=== PATIENT | male | born 1940 | race Caucasian/White ===

== ENCOUNTER → 2017-11-24 | Outpatient (CLI) | payer MEDICARE ==
[~2017-11-24] MED LIST: ACET325 PO; ALBU90OI6 INH; ALBU90OI61 INH; ASCO500 PO; ATOR10; ATOR40TA PO; Aspir 8181 MG PO; Augmentin 875-1 EACH PO; CARV6.25 PO; CEPH500 PO; FINA5 PO; FISH OIL 1,0001 EAC2 PO; FISH OIL CONC1000 MG PO; Flomax0.4 MG PO; HYDCHL12.5 PO; HYDR1TAB94 PO; LEVO750 PO; LISI20 PO; MELO7.5 PO; MULVITMINF; Macrobid 100 M100 MG PO; Norvasc2.5 MG PO; OMEPRAZOLE MAGN20 MG PO; ONDA4ODT SL; OSTEO BI-FLEX1 EAC2 PO; OXYACE5T PO; POTCHL20ER PO; TAMS.4ER PO; VITAMIN D34000 UNIT PO; VITAMIN PO; ZESTORETIC 20-121 EA PO
== END | disposition home or self-care (01) ==
LOC: LAB SRC 15:37
DX: N39.43 Post-void dribbling (principal); R31.9 Hematuria, unspecified
CPT/HCPCS: 87077; 87086; 87186

== ENCOUNTER → 2017-12-21 | Outpatient (CLI) | payer MEDICARE ==
[2017-12-21 09:40] LABS: Source, Urine Clean Catch
[2017-12-21 13:20] LABS: Bilirubin, Urine Neg (Neg); Blood, Urine 1+ (Neg); Glucose Qualitative, Urine Neg (Neg); Ketones, Urine Neg (Neg); Leukocyte Esterase, Urine Neg (Neg); Nitrite, Urine Neg (Neg); Protein, Urine Neg (Neg); Urobilinogen, Urine NORM (Normal)
[2017-12-21 13:55] LABS: Appearance, Urine Clear (Clear); Color, Urine Yellow (P-Yellow)
[2017-12-21 13:57] LABS: Red Blood Cells, Urine 0-2 /hpf (0-2)
[2017-12-21 13:58] LABS: Bacteria Few /hpf; Squamous Epithelial Cells Rare /hpf (Few)
== END ==
LOC: LAB SHORT 09:00 → LAB SRC 09:00 → LAB FUT 11-26 08:15 → EDSTATUS 11-26 08:15
PROVIDERS: Registered Nurse
DX: N30.01 Acute cystitis with hematuria (principal)
CPT/HCPCS: 81001; 87086

== ENCOUNTER 2018-02-06 15:00 | Emergency (ER) | payer MEDICARE ==
[~2018-02-06] VITALS: Ht 177.8 cm; Wt 140.6 kg
[~2018-02-06 15:00] MED LIST changes: -ACET325 PO; -ALBU90OI6 INH; -ALBU90OI61 INH; -ASCO500 PO; -Aspir 8181 MG PO; -Augmentin 875-1 EACH PO; -FINA5 PO; -FISH OIL 1,0001 EAC2 PO; -FISH OIL CONC1000 MG PO; -HYDR1TAB94 PO; -LEVO750 PO; +LISI20; -LISI20 PO; -Norvasc2.5 MG PO; +OMEP20ER; -OMEPRAZOLE MAGN20 MG PO; -ONDA4ODT SL; -OSTEO BI-FLEX1 EAC2 PO; -POTCHL20ER PO; -TAMS.4ER PO; -VITAMIN D34000 UNIT PO; -VITAMIN PO; -ZESTORETIC 20-121 EA PO
[2018-02-06 15:57] LABS: Source, Urine Clean Catch
[2018-02-06 15:58] LABS: BASOPHILS ABSOLUTE AUTO 0.03 K/mm3 (0.00-0.23); BASOPHILS PERCENT AUTO 0 % (0-2); EOSINOPHILS ABSOLUTE AUTO 0.01 K/mm3 (0.00-0.68); EOSINOPHILS PERCENT AUTO 0 % (0-6); Hematocrit 46.4 % (37.0-53.0); Hemoglobin 15.4 g/dL (13.5-17.5); IMMATURE GRAN ABSOLUTE AUTO 0.03 K/mm3 (0.00-0.10); IMMATURE GRAN PERCENT AUTO 0 % (0-1); LYMPHOCYTES ABSOLUTE AUTO 0.89 K/mm3 (0.84-5.20); LYMPHOCYTES PERCENT AUTO 8 % (21-46); MONOCYTES ABSOLUTE AUTO 0.59 K/mm3 (0.16-1.47); MONOCYTES PERCENT AUTO 5 % (4-13); Mean Corpuscular HGB 29.5 pg (26.0-34.0); Mean Corpuscular HGB Conc 33.2 g/dL (31.5-36.5); Mean Corpuscular Volume 89 fL (80-100); Mean Platelet Volume 9.5 fL (9.1-12.4); NEUTROPHILS ABSOLUTE AUTO 10.12 K/mm3 (1.96-9.15); NEUTROPHILS PERCENT AUTO 87 % (41-73); Platelet Count 205 K/mm3 (150-400); RDW Coefficient Variation 12.9 % (11.7-14.2); Red Blood Cell Count 5.22 M/mm3 (4.30-5.90); White Blood Cell Count 11.67 K/mm3 (4.00-11.30)
[2018-02-06 16:03] LABS: Appearance, Urine Clear (Clear); Bilirubin, Urine Neg (Neg); Blood, Urine 2+ (Neg); Color, Urine Yellow (P-Yellow); Glucose Qualitative, Urine Neg (Neg); Ketones, Urine Neg (Neg); Leukocyte Esterase, Urine Neg (Neg); Nitrite, Urine Neg (Neg); Protein, Urine Neg (Neg); Specific Gravity, Urine 1.015 (1.003-1.022); Urobilinogen, Urine NORM (Normal)
[2018-02-06 16:10] LABS: Red Blood Cells, Urine 0-2 /hpf (0-2)
[2018-02-06 16:11] LABS: Bacteria Rare /hpf; Squamous Epithelial Cells Not Seen /hpf (Few)
[2018-02-06 16:21] LABS: Alanine Aminotransfer (ALT/SGP 30 U/L (12-78); Albumin, Blood 3.6 g/dL (3.4-5.0); Albumin/Globulin Ratio 0.9 (0.8-1.8); Alk Phos 99 U/L (50-136); Anion Gap 10 mmol/L (6-16); Aspartate Aminotrans (AST/SGOT 22 U/L (12-37); Bilirubin, Total 0.7 mg/dL (0.1-1.0); Blood Urea Nitrogen 17 mg/dL (8-24); Bun/Creatinine Ratio 18.7 (12.0-20.0); CO2, Blood 26 mmol/L (21-32); Chloride, Blood 103 mmol/L (98-108); Creatinine, Blood 0.91 mg/dL (0.60-1.20); Globulin, Blood 4.2 g/dL (2.2-4.0); Glomerular Filtration Rate >60 (60-); Glucose, Blood 143 mg/dL (70-99); Potassium, Blood 3.2 mmol/L (3.5-5.5); Sodium, Blood 139 mmol/L (136-145); Total Protein, Blood 7.8 g/dL (6.4-8.2); Troponin I <0.015 ng/mL (0.000-0.040)
== END 2018-02-06 20:47 | disposition home or self-care (01) ==
LOC: ER 15:00
PROVIDERS: Emergency Medicine
DX: N40.1 Benign prostatic hyperplasia with lower urinary tract symptoms (principal); R33.8 Other retention of urine; N13.30 Unspecified hydronephrosis; E66.01 Morbid (severe) obesity due to excess calories; Z68.42 Body mass index [BMI] 45.0-49.9, adult; E78.00 Pure hypercholesterolemia, unspecified; Z79.899 Other long term (current) drug therapy
CPT/HCPCS: 36415; 51702; 74177; 80053; 81001; 83690; 84484; 85025; 93005; 93010; 99284; Q9967

== ENCOUNTER 2018-02-08 10:14 | Emergency (ER) | payer MEDICARE ==
[~2018-02-08] VITALS: Ht 177.8 cm; Wt 140.6 kg
== END 2018-02-08 14:07 | disposition home or self-care (01) ==
LOC: ER 10:14
DX: Z46.6 Encounter for fitting and adjustment of urinary device (principal); R33.9 Retention of urine, unspecified; E78.00 Pure hypercholesterolemia, unspecified; Z79.899 Other long term (current) drug therapy
CPT/HCPCS: 51702; 99282

== ENCOUNTER → 2018-02-11 | Outpatient (CLI) | payer MEDICARE | LOC: LAB SHORT 09:02 → LAB 09:02 | DX: R33.9 Retention of urine, unspecified (principal) | CPT/HCPCS: 87086 ==

== ENCOUNTER 2018-03-18 03:46 | Emergency (ER) | payer MEDICARE ==
[~2018-03-18] VITALS: Ht 177.8 cm; Wt 136.1 kg
[~2018-03-18 03:46] MED LIST changes: -LISI20; +LISI20 PO; -OMEP20ER; +OMEPRAZOLE MAGN20 MG PO
[2018-03-18] MEDS ORDERED: TAMS.4ER PO (04:38)
[2018-03-18 04:39] LABS: Source, Urine Catheter
[2018-03-18] MEDS ORDERED: Norvasc2.5 MG PO (04:39)
[2018-03-18] MEDS ORDERED: ZESTORETIC 20-121 EA PO (04:40)
[2018-03-18 04:41] LABS: Bilirubin, Urine Neg (Neg); Blood, Urine Neg (Neg); Glucose Qualitative, Urine Neg (Neg); Ketones, Urine Neg (Neg); Leukocyte Esterase, Urine 2+ (Neg); Nitrite, Urine Neg (Neg); Protein, Urine Neg (Neg); Urobilinogen, Urine NORM (Normal)
[2018-03-18] MEDS ORDERED: CHOL10002 PO (04:41)
[2018-03-18] MEDS ORDERED: FISH OIL 1,0001 EAC2 PO (04:41)
[2018-03-18] MEDS ORDERED: OSTEO BI-FLEX1 EAC2 PO (04:42)
[2018-03-18] MEDS ORDERED: Aspir 8181 MG PO (04:42)
[2018-03-18] MEDS ORDERED: ALBU90OI6 INH (04:43)
[2018-03-18 04:50] LABS: Appearance, Urine Clear (Clear); Color, Urine Yellow (P-Yellow)
[2018-03-18 04:51] LABS: Bacteria Rare /hpf; Red Blood Cells, Urine 0-2 /hpf (0-2); Squamous Epithelial Cells Not Seen /hpf (Few)
[2018-03-18] MEDS ORDERED: FINA5 PO (19:16)
== END 2018-03-18 04:45 | disposition home or self-care (01) ==
LOC: ER 03:46
PROVIDERS: Emergency Medicine
DX: R33.9 Retention of urine, unspecified (principal); Z79.899 Other long term (current) drug therapy; Z79.82 Long term (current) use of aspirin
CPT/HCPCS: 51702; 81001; 87077; 87086; 87186; 99283

== ENCOUNTER 2018-03-18 19:10 | Inpatient (IN) | payer MEDICARE ==
[~2018-03-18] VITALS: Ht 177.8 cm; Wt 141.9 kg
[~2018-03-18 19:10] MED LIST changes: +ALBU90OI6 INH; +Aspir 8181 MG PO; +CHOL10002 PO; +FISH OIL 1,0001 EAC2 PO; +Norvasc2.5 MG PO; +OSTEO BI-FLEX1 EAC2 PO; +TAMS.4ER PO; +ZESTORETIC 20-121 EA PO
[2018-03-18] MEDS ORDERED: FINA5 PO (19:16)
[2018-03-18 19:49] LABS: Source, Urine Catheter
[2018-03-18 19:51] LABS: BASOPHILS ABSOLUTE AUTO 0.03 K/mm3 (0.00-0.23); BASOPHILS PERCENT AUTO 0 % (0-2); EOSINOPHILS ABSOLUTE AUTO 0.08 K/mm3 (0.00-0.68); EOSINOPHILS PERCENT AUTO 1 % (0-6); Hematocrit 43.3 % (37.0-53.0); Hemoglobin 14.5 g/dL (13.5-17.5); IMMATURE GRAN ABSOLUTE AUTO 0.07 K/mm3 (0.00-0.10); IMMATURE GRAN PERCENT AUTO 0 % (0-1); LYMPHOCYTES ABSOLUTE AUTO 0.76 K/mm3 (0.84-5.20); LYMPHOCYTES PERCENT AUTO 5 % (21-46); MONOCYTES ABSOLUTE AUTO 1.13 K/mm3 (0.16-1.47); MONOCYTES PERCENT AUTO 7 % (4-13); Mean Corpuscular HGB 29.7 pg (26.0-34.0); Mean Corpuscular HGB Conc 33.5 g/dL (31.5-36.5); Mean Corpuscular Volume 89 fL (80-100); Mean Platelet Volume 9.9 fL (9.1-12.4); NEUTROPHILS ABSOLUTE AUTO 14.98 K/mm3 (1.96-9.15); NEUTROPHILS PERCENT AUTO 88 % (41-73); Platelet Count 186 K/mm3 (150-400); Red Blood Cell Count 4.89 M/mm3 (4.30-5.90); White Blood Cell Count 17.05 K/mm3 (4.00-11.30)
[2018-03-18 20:00] LABS: Appearance, Urine Clear (Clear); Bilirubin, Urine Neg (Neg); Blood, Urine 4+ (Neg); Color, Urine Yellow (P-Yellow); Glucose Qualitative, Urine Neg (Neg); Ketones, Urine Neg (Neg); Leukocyte Esterase, Urine 3+ (Neg); Nitrite, Urine Neg (Neg); Protein, Urine 2+ (Neg); Urobilinogen, Urine NORM (Normal); pH, Urine 6.5 (5.0-8.0)
[2018-03-18 20:07] LABS: Anion Gap 9 mmol/L (6-16); Blood Urea Nitrogen 16 mg/dL (8-24); Bun/Creatinine Ratio 18.9 (12.0-20.0); CO2, Blood 25 mmol/L (21-32); Calcium, Blood 8.8 mg/dL (8.5-10.1); Chloride, Blood 104 mmol/L (98-108); Creatinine, Blood 0.85 mg/dL (0.60-1.20); Glomerular Filtration Rate >60 (60-); Glucose, Blood 124 mg/dL (70-99); Potassium, Blood 3.8 mmol/L (3.5-5.5); Sodium, Blood 138 mmol/L (136-145)
[2018-03-18 20:08] LABS: Bacteria Few /hpf; Red Blood Cells, Urine 25-50 /hpf (0-2); Squamous Epithelial Cells Few /hpf (Few); White Blood Cells, Urine 50-100 /hpf (0-5)
[2018-03-18 23:03] LABS: International Normalized Ratio 1.09; Prothrombin Time Results 11.4 Sec (9.7-11.5)
[2018-03-19 05:10] LABS: BASOPHILS ABSOLUTE AUTO 0.03 K/mm3 (0.00-0.23); BASOPHILS PERCENT AUTO 0 % (0-2); EOSINOPHILS ABSOLUTE AUTO 0.02 K/mm3 (0.00-0.68); EOSINOPHILS PERCENT AUTO 0 % (0-6); Hematocrit 38.4 % (37.0-53.0); Hemoglobin 12.9 g/dL (13.5-17.5); IMMATURE GRAN ABSOLUTE AUTO 0.09 K/mm3 (0.00-0.10); IMMATURE GRAN PERCENT AUTO 1 % (0-1); LYMPHOCYTES ABSOLUTE AUTO 0.92 K/mm3 (0.84-5.20); LYMPHOCYTES PERCENT AUTO 5 % (21-46); MONOCYTES ABSOLUTE AUTO 1.17 K/mm3 (0.16-1.47); MONOCYTES PERCENT AUTO 7 % (4-13); Mean Corpuscular HGB 29.3 pg (26.0-34.0); Mean Corpuscular HGB Conc 33.6 g/dL (31.5-36.5); Mean Corpuscular Volume 87 fL (80-100); Mean Platelet Volume 10.1 fL (9.1-12.4); NEUTROPHILS PERCENT AUTO 87 % (41-73); Platelet Count 183 K/mm3 (150-400); RDW Standard Deviation 41.3 fL (35.1-46.3); White Blood Cell Count 17.23 K/mm3 (4.00-11.30)
[2018-03-19 05:33] LABS: Anion Gap 8 mmol/L (6-16); Blood Urea Nitrogen 11 mg/dL (8-24); Bun/Creatinine Ratio 14.1 (12.0-20.0); CO2, Blood 26 mmol/L (21-32); Chloride, Blood 106 mmol/L (98-108); Creatinine, Blood 0.78 mg/dL (0.60-1.20); Glomerular Filtration Rate >60 (60-); Glucose, Blood 126 mg/dL (70-99); Sodium, Blood 140 mmol/L (136-145)
[2018-03-20 04:58] LABS: BASOPHILS ABSOLUTE AUTO 0.03 K/mm3 (0.00-0.23); BASOPHILS PERCENT AUTO 0 % (0-2); EOSINOPHILS ABSOLUTE AUTO 0.14 K/mm3 (0.00-0.68); EOSINOPHILS PERCENT AUTO 1 % (0-6); Hematocrit 36.2 % (37.0-53.0); Hemoglobin 11.9 g/dL (13.5-17.5); IMMATURE GRAN ABSOLUTE AUTO 0.05 K/mm3 (0.00-0.10); IMMATURE GRAN PERCENT AUTO 0 % (0-1); LYMPHOCYTES ABSOLUTE AUTO 1.78 K/mm3 (0.84-5.20); LYMPHOCYTES PERCENT AUTO 14 % (21-46); MONOCYTES ABSOLUTE AUTO 1.03 K/mm3 (0.16-1.47); MONOCYTES PERCENT AUTO 8 % (4-13); Mean Corpuscular HGB 29.2 pg (26.0-34.0); Mean Corpuscular HGB Conc 32.9 g/dL (31.5-36.5); Mean Corpuscular Volume 89 fL (80-100); NEUTROPHILS ABSOLUTE AUTO 10.15 K/mm3 (1.96-9.15); NEUTROPHILS PERCENT AUTO 77 % (41-73); Platelet Count 150 K/mm3 (150-400); RDW Coefficient Variation 13.1 % (11.7-14.2); RDW Standard Deviation 42.7 fL (35.1-46.3); Red Blood Cell Count 4.07 M/mm3 (4.30-5.90); White Blood Cell Count 13.18 K/mm3 (4.00-11.30)
[2018-03-20 05:21] LABS: Anion Gap 7 mmol/L (6-16); Blood Urea Nitrogen 15 mg/dL (8-24); Bun/Creatinine Ratio 17.2 (12.0-20.0); CO2, Blood 27 mmol/L (21-32); Calcium, Blood 8.2 mg/dL (8.5-10.1); Chloride, Blood 107 mmol/L (98-108); Creatinine, Blood 0.87 mg/dL (0.60-1.20); Glomerular Filtration Rate >60 (60-); Glucose, Blood 96 mg/dL (70-99); Sodium, Blood 141 mmol/L (136-145)
[2018-03-21 08:39] LABS: BASOPHILS ABSOLUTE AUTO 0.04 K/mm3 (0.00-0.23); BASOPHILS PERCENT AUTO 1 % (0-2); EOSINOPHILS ABSOLUTE AUTO 0.21 K/mm3 (0.00-0.68); EOSINOPHILS PERCENT AUTO 3 % (0-6); Hematocrit 39.2 % (37.0-53.0); Hemoglobin 13.1 g/dL (13.5-17.5); IMMATURE GRAN ABSOLUTE AUTO 0.04 K/mm3 (0.00-0.10); IMMATURE GRAN PERCENT AUTO 1 % (0-1); LYMPHOCYTES ABSOLUTE AUTO 1.35 K/mm3 (0.84-5.20); LYMPHOCYTES PERCENT AUTO 16 % (21-46); MONOCYTES PERCENT AUTO 7 % (4-13); Mean Corpuscular HGB 29.5 pg (26.0-34.0); Mean Corpuscular HGB Conc 33.4 g/dL (31.5-36.5); Mean Corpuscular Volume 88 fL (80-100); NEUTROPHILS PERCENT AUTO 73 % (41-73); Platelet Count 186 K/mm3 (150-400); RDW Coefficient Variation 12.9 % (11.7-14.2); RDW Standard Deviation 41.8 fL (35.1-46.3); Red Blood Cell Count 4.44 M/mm3 (4.30-5.90); White Blood Cell Count 8.34 K/mm3 (4.00-11.30)
[2018-03-21 09:01] LABS: Anion Gap 8 mmol/L (6-16); Blood Urea Nitrogen 11 mg/dL (8-24); Bun/Creatinine Ratio 13.2 (12.0-20.0); CO2, Blood 25 mmol/L (21-32); Calcium, Blood 8.6 mg/dL (8.5-10.1); Chloride, Blood 108 mmol/L (98-108); Creatinine, Blood 0.83 mg/dL (0.60-1.20); Glomerular Filtration Rate >60 (60-); Glucose, Blood 109 mg/dL (70-99); Magnesium, Blood 2.1 mg/dL (1.6-2.4); Potassium, Blood 3.3 mmol/L (3.5-5.5); Sodium, Blood 141 mmol/L (136-145)
[2018-03-21] MEDS ORDERED: ASCO500 PO (11:05)
[2018-03-21] MEDS ORDERED: ACET325 PO (11:05)
[2018-03-21] MEDS ORDERED: ONDA4ODT SL (11:07)
[2018-03-21] MEDS ORDERED: POTCHL20ER PO (11:08)
[2018-03-21] MEDS ORDERED: LEVO750 PO (11:09)
== END 2018-03-21 13:05 | disposition home or self-care (01) | DRG 698 ==
LOC: ER 19:10 → MEDS 19:11 → ER 22:37 → MEDS 22:37 → EDPENDDISTM 03-21 11:05 → ENPENDDIS 03-21 11:08 → MEDS 03-21 13:05
PROVIDERS: Emergency Medicine; Family Medicine; Hospitalist; Internal Medicine
DX: T83.511A Infection and inflammatory reaction due to indwelling urethral catheter, initial encounter (principal); A41.9 Sepsis, unspecified organism; Z68.41 Body mass index [BMI] 40.0-44.9, adult; N39.0 Urinary tract infection, site not specified; I10 Essential (primary) hypertension; E78.5 Hyperlipidemia, unspecified; G47.33 Obstructive sleep apnea (adult) (pediatric); N40.0 Benign prostatic hyperplasia without lower urinary tract symptoms; K21.9 Gastro-esophageal reflux disease without esophagitis; M19.90 Unspecified osteoarthritis, unspecified site; I25.10 Atherosclerotic heart disease of native coronary artery without angina pectoris; E66.9 Obesity, unspecified; Z79.1 Long term (current) use of non-steroidal anti-inflammatories (NSAID); Z79.82 Long term (current) use of aspirin; Z79.899 Other long term (current) drug therapy
CPT/HCPCS: 36415; 71045; 80048; 81001; 83605; 83735; 84145; 85025; 85610; 85730; 87086; 94762; 96374; 99285; J0692; J0696; J1650; J7030

== ENCOUNTER 2018-03-28 10:14 | Emergency (ER) | payer MEDICARE ==
[~2018-03-28] VITALS: Ht 177.8 cm; Wt 136.1 kg
[~2018-03-28 10:14] MED LIST changes: +ACET325 PO; +ASCO500 PO; +FINA5 PO; +LEVO750 PO; +ONDA4ODT SL; +POTCHL20ER PO
== END 2018-03-28 11:25 | disposition home or self-care (01) ==
LOC: ER 10:14
DX: T83.031A Leakage of indwelling urethral catheter, initial encounter (principal); E78.00 Pure hypercholesterolemia, unspecified; Z79.899 Other long term (current) drug therapy; Z79.82 Long term (current) use of aspirin
CPT/HCPCS: 99282

== ENCOUNTER 2018-09-15 07:38 | Day surgery (SDC) | payer MEDICARE ==
[~2018-09-15] VITALS: Ht 177.8 cm; Wt 137.2 kg
[~2018-09-15 07:38] MED LIST changes: +ALBU90OI61 INH
== END 2018-09-15 09:40 | disposition home or self-care (01) ==
LOC: ORSCSDS 07:38
PROVIDERS: Internal Medicine Gastroenterology
PROC: 0DBP8ZX Excision of Rectum, Via Natural or Artificial Opening Endoscopic, Diagnostic (ICD-10-PCS; principal; 2018-09-15 09:00)
PROC: 0DBK8ZX Excision of Ascending Colon, Via Natural or Artificial Opening Endoscopic, Diagnostic (ICD-10-PCS; principal; 2018-09-15 09:00)
DX: Z12.11 Encounter for screening for malignant neoplasm of colon (principal); K62.1 Rectal polyp; D12.2 Benign neoplasm of ascending colon; Z86.010 Personal history of colon polyps; K57.30 Diverticulosis of large intestine without perforation or abscess without bleeding; K64.8 Other hemorrhoids; I10 Essential (primary) hypertension; K21.0 Gastro-esophageal reflux disease with esophagitis; G47.33 Obstructive sleep apnea (adult) (pediatric); E66.01 Morbid (severe) obesity due to excess calories; Z68.41 Body mass index [BMI] 40.0-44.9, adult; Z79.82 Long term (current) use of aspirin; Z79.899 Other long term (current) drug therapy
CPT/HCPCS: 88305; J2405; J7120

== ENCOUNTER → 2018-12-22 | Outpatient (CLI) | payer MEDICARE ==
[~2018-12-22] MED LIST changes: +Augmentin 875-1 EACH PO; -CHOL10002 PO; +FISH OIL CONC1000 MG PO; +HYDR1TAB94 PO; +VITAMIN D34000 UNIT PO; +VITAMIN PO
== END | disposition home or self-care (01) ==
LOC: LAB SRC 08:00 → LAB SHORT 08:00
DX: R31.9 Hematuria, unspecified (principal); R82.90 Unspecified abnormal findings in urine
CPT/HCPCS: 87077; 87086; 87186

== ENCOUNTER → 2019-01-07 | Outpatient (CLI) | payer MEDICARE ==
[2019-01-07 13:28] LABS: Bilirubin, Urine Neg (Neg); Blood, Urine 1+ (Neg); Glucose Qualitative, Urine Neg (Neg); Ketones, Urine Neg (Neg); Leukocyte Esterase, Urine Neg (Neg); Nitrite, Urine Neg (Neg); Protein, Urine Neg (Neg); Urobilinogen, Urine NORM (Normal)
[2019-01-07 14:38] LABS: Appearance, Urine Clear (Clear); Color, Urine Yellow (P-Yellow)
[2019-01-07 14:39] LABS: Bacteria Few /hpf; Squamous Epithelial Cells Not Seen /hpf (Few)
== END | disposition home or self-care (01) ==
LOC: LAB SHORT 08:45 → LAB SRC 08:45
PROVIDERS: Registered Nurse
DX: R31.9 Hematuria, unspecified (principal); R82.90 Unspecified abnormal findings in urine
CPT/HCPCS: 81001

== ENCOUNTER → 2019-12-15 | Outpatient (CLI) | payer MEDICARE | LOC: PLD 07:42 → LAB SHORT 07:42 | DX: D48.5 Neoplasm of uncertain behavior of skin (principal) | CPT/HCPCS: 88304 ==

== ENCOUNTER → 2020-11-21 | Outpatient (CLI) | payer MEDICARE | END | disposition home or self-care (01) | LOC: LAB 13:00 → LAB SHORT 13:00 | DX: R32 Unspecified urinary incontinence (principal) | CPT/HCPCS: 87086 ==

== ENCOUNTER → 2021-01-25 | Outpatient (CLI) | payer MEDICARE ==
[2021-01-25 11:20] LABS: Source, Urine Clean Catch
[2021-01-25 14:16] LABS: Appearance, Urine Hazy (Clear); Bilirubin, Urine Neg (Neg); Blood, Urine 4+ (Neg); Color, Urine Yellow (P-Yellow); Glucose Qualitative, Urine Neg (Neg); Ketones, Urine Neg (Neg); Leukocyte Esterase, Urine 3+ (Neg); Nitrite, Urine Neg (Neg); Protein, Urine 3+ (Neg); Urobilinogen, Urine NORM (Normal); pH, Urine 6.5 (5.0-8.0)
[2021-01-25 14:45] LABS: Bacteria Mod /hpf; Red Blood Cells, Urine TNTC /hpf (0-2); Renal Epithelial Few /hpf (0-Rare); Squamous Epithelial Cells Rare /hpf (Few); White Blood Cells, Urine TNTC /hpf (0-5)
== END | disposition home or self-care (01) ==
LOC: LAB SHORT 11:19 → LAB SRC 11:19
PROVIDERS: Nurse Practitioner Family
DX: R30.0 Dysuria (principal); R33.9 Retention of urine, unspecified
CPT/HCPCS: 81001; 87077; 87086; 87186

== ENCOUNTER → 2021-03-27 | Outpatient (CLI) | payer MEDICARE | LOC: LAB SHORT 11:07 → LAB 11:07 | DX: D48.5 Neoplasm of uncertain behavior of skin (principal); D36.10 Benign neoplasm of peripheral nerves and autonomic nervous system, unspecified | CPT/HCPCS: 88305 ==

== ENCOUNTER → 2021-06-25 | Outpatient (CLI) | payer MEDICARE ==
[2021-06-28 14:14] LABS: Stool Occult Bld Immuno 1 Negative (NEGATIVE)
== END | disposition home or self-care (01) ==
LOC: LAB 07:25 → LAB SHORT 07:25
PROVIDERS: Registered Nurse
DX: Z12.11 Encounter for screening for malignant neoplasm of colon (principal)
CPT/HCPCS: G0328

== ENCOUNTER → 2021-06-27 | Outpatient (CLI) | payer MEDICARE | END | disposition home or self-care (01) | LOC: LAB 16:46 → LAB SHORT 16:46 | DX: N39.0 Urinary tract infection, site not specified (principal); R31.9 Hematuria, unspecified | CPT/HCPCS: 87077; 87086; 87186 ==

== ENCOUNTER → 2021-12-24 | Outpatient (CLI) | payer MEDICARE | END | disposition home or self-care (01) | LOC: LAB SHORT 10:40 | DX: R35.0 Frequency of micturition (principal) | CPT/HCPCS: 87086 ==

== ENCOUNTER → 2022-01-10 | Outpatient (CLI) | payer MEDICARE | LOC: LAB SHORT 17:51 | DX: R35.0 Frequency of micturition (principal) | CPT/HCPCS: 87086 ==

== ENCOUNTER 2022-01-17 08:46 | Emergency (ER) | payer MEDICARE ==
[~2022-01-17] VITALS: Ht 177.8 cm; Wt 145.2 kg
[2022-01-17 09:39] LABS: BASOPHILS ABSOLUTE AUTO 0.03 K/mm3 (0.00-0.23); BASOPHILS PERCENT AUTO 0 % (0-2); EOSINOPHILS ABSOLUTE AUTO 0.06 K/mm3 (0.00-0.68); EOSINOPHILS PERCENT AUTO 1 % (0-6); Hematocrit 43.8 % (37.0-53.0); Hemoglobin 14.5 g/dL (13.5-17.5); IMMATURE GRAN ABSOLUTE AUTO 0.05 K/mm3 (0.00-0.10); IMMATURE GRAN PERCENT AUTO 0 % (0-1); LYMPHOCYTES PERCENT AUTO 12 % (21-46); MONOCYTES ABSOLUTE AUTO 0.85 K/mm3 (0.16-1.47); MONOCYTES PERCENT AUTO 7 % (4-13); Mean Corpuscular HGB 29.1 pg (26.0-34.0); Mean Corpuscular HGB Conc 33.1 g/dL (31.5-36.5); Mean Corpuscular Volume 88 fL (80-100); Mean Platelet Volume 9.9 fL (9.1-12.4); NEUTROPHILS ABSOLUTE AUTO 9.15 K/mm3 (1.96-9.15); NEUTROPHILS PERCENT AUTO 79 % (41-73); Platelet Count 297 K/mm3 (150-400); RDW Coefficient Variation 12.7 % (11.7-14.2); RDW Standard Deviation 41.2 fL (35.1-46.3); Red Blood Cell Count 4.99 M/mm3 (4.30-5.90); White Blood Cell Count 11.54 K/mm3 (4.00-11.30)
[2022-01-17 09:49] LABS: Alanine Aminotransfer (ALT/SGP 20 U/L (12-78); Albumin, Blood 2.9 g/dL (3.4-5.0); Albumin/Globulin Ratio 0.6 (0.8-1.8); Alk Phos 73 U/L (50-136); Anion Gap 5 mmol/L (6-16); Aspartate Aminotrans (AST/SGOT 10 U/L (12-37); Bilirubin, Total 0.5 mg/dL (0.1-1.0); Blood Urea Nitrogen 18 mg/dL (8-24); Bun/Creatinine Ratio 24.2 (12.0-20.0); CO2, Blood 30 mmol/L (21-32); Calcium, Blood 9.3 mg/dL (8.5-10.1); Chloride, Blood 102 mmol/L (98-108); Creatinine, Blood 0.75 mg/dL (0.60-1.20); Globulin, Blood 4.9 g/dL (2.2-4.0); Glomerular Filtration Rate >60 (60-); Glucose, Blood 168 mg/dL (70-99); Magnesium, Blood 2.2 mg/dL (1.6-2.4); Potassium, Blood 3.5 mmol/L (3.5-5.5); Sodium, Blood 137 mmol/L (136-145); Total Protein, Blood 7.8 g/dL (6.4-8.2)
[2022-01-17 10:30] LABS: Free Thyroxine 1.53 ng/dL (0.70-1.60); Thyroid Stimulating Hormone 1.43 uIU/mL (0.360-4.800)
[2022-01-17] MEDS ORDERED: IBUP600 PO (14:41)
[2022-01-17] MEDS ORDERED: HYDR1TAB94 PO (14:41)
[2022-01-17] MEDS ORDERED: Prednisone10 MG PO (14:41)
== END 2022-01-17 15:16 | disposition home or self-care (01) ==
LOC: ER 08:46
PROVIDERS: Physician Assistant
DX: M17.0 Bilateral primary osteoarthritis of knee (principal); M25.462 Effusion, left knee; M25.461 Effusion, right knee; E78.5 Hyperlipidemia, unspecified; I10 Essential (primary) hypertension; K21.9 Gastro-esophageal reflux disease without esophagitis; Z79.899 Other long term (current) drug therapy
CPT/HCPCS: 36415; 73562-LT; 73562-RT; 80053; 83735; 84439; 84443; 85025; 85651; 86140; 93005; 93010; 93926; 96374; 96375; 99284-25; J1170; J1885; J2930

== ENCOUNTER 2022-01-29 08:41 | Emergency (ER) | payer MEDICARE ==
[~2022-01-29] VITALS: Ht 177.8 cm; Wt 145.2 kg
[~2022-01-29 08:41] MED LIST changes: +IBUP600 PO; +Prednisone10 MG PO
[2022-01-29 10:20] LABS: BASOPHILS ABSOLUTE AUTO 0.02 K/mm3 (0.00-0.23); BASOPHILS PERCENT AUTO 0 % (0-2); EOSINOPHILS ABSOLUTE AUTO 0.03 K/mm3 (0.00-0.68); EOSINOPHILS PERCENT AUTO 0 % (0-6); Hematocrit 43.5 % (37.0-53.0); Hemoglobin 14.2 g/dL (13.5-17.5); IMMATURE GRAN ABSOLUTE AUTO 0.07 K/mm3 (0.00-0.10); IMMATURE GRAN PERCENT AUTO 1 % (0-1); LYMPHOCYTES ABSOLUTE AUTO 1.21 K/mm3 (0.84-5.20); LYMPHOCYTES PERCENT AUTO 9 % (21-46); MONOCYTES ABSOLUTE AUTO 0.93 K/mm3 (0.16-1.47); MONOCYTES PERCENT AUTO 7 % (4-13); Mean Corpuscular HGB 29.1 pg (26.0-34.0); Mean Corpuscular HGB Conc 32.6 g/dL (31.5-36.5); Mean Corpuscular Volume 89 fL (80-100); Mean Platelet Volume 9.9 fL (9.1-12.4); NEUTROPHILS ABSOLUTE AUTO 11.96 K/mm3 (1.96-9.15); NEUTROPHILS PERCENT AUTO 84 % (41-73); Platelet Count 231 K/mm3 (150-400); RDW Coefficient Variation 13.1 % (11.7-14.2); RDW Standard Deviation 42.8 fL (35.1-46.3); Red Blood Cell Count 4.88 M/mm3 (4.30-5.90); White Blood Cell Count 14.22 K/mm3 (4.00-11.30)
[2022-01-29] MEDS ORDERED: METPRE4DP PO (11:31)
== END 2022-01-29 12:08 | disposition home or self-care (01) ==
LOC: ER 08:41
PROVIDERS: Family Medicine
DX: M19.90 Unspecified osteoarthritis, unspecified site (principal); I10 Essential (primary) hypertension; E78.5 Hyperlipidemia, unspecified; I25.10 Atherosclerotic heart disease of native coronary artery without angina pectoris; K21.9 Gastro-esophageal reflux disease without esophagitis; Z79.82 Long term (current) use of aspirin; Z79.899 Other long term (current) drug therapy
CPT/HCPCS: 36415; 85025; 85651; 86140; 96374; 99283-25; J1100

== ENCOUNTER → 2022-03-27 | Outpatient (CLI) | payer MEDICARE ==
[~2022-03-27] MED LIST changes: +METPRE4DP PO
== END | disposition home or self-care (01) ==
LOC: LAB 14:35 → LAB SHORT 14:35
DX: M35.3 Polymyalgia rheumatica (principal)
CPT/HCPCS: 85651

== ENCOUNTER 2022-06-22 00:51 | Emergency (ER) | payer MEDICARE ==
[~2022-06-22] VITALS: Ht 177.8 cm; Wt 145.2 kg
[2022-06-22 06:59] LABS: BASOPHILS ABSOLUTE AUTO 0.03 K/mm3 (0.00-0.23); BASOPHILS PERCENT AUTO 0 % (0-2); EOSINOPHILS ABSOLUTE AUTO 0.06 K/mm3 (0.00-0.68); EOSINOPHILS PERCENT AUTO 1 % (0-6); Hematocrit 45.4 % (37.0-53.0); Hemoglobin 14.7 g/dL (13.5-17.5); IMMATURE GRAN ABSOLUTE AUTO 0.06 K/mm3 (0.00-0.10); IMMATURE GRAN PERCENT AUTO 1 % (0-1); LYMPHOCYTES ABSOLUTE AUTO 1.33 K/mm3 (0.84-5.20); LYMPHOCYTES PERCENT AUTO 12 % (21-46); MONOCYTES ABSOLUTE AUTO 0.84 K/mm3 (0.16-1.47); MONOCYTES PERCENT AUTO 7 % (4-13); Mean Corpuscular HGB 30.1 pg (26.0-34.0); Mean Corpuscular HGB Conc 32.4 g/dL (31.5-36.5); Mean Corpuscular Volume 93 fL (80-100); Mean Platelet Volume 10.4 fL (9.1-12.4); NEUTROPHILS ABSOLUTE AUTO 9.07 K/mm3 (1.96-9.15); NEUTROPHILS PERCENT AUTO 80 % (41-73); Platelet Count 182 K/mm3 (150-400); RDW Coefficient Variation 13.2 % (11.7-14.2); RDW Standard Deviation 44.7 fL (35.1-46.3); Red Blood Cell Count 4.89 M/mm3 (4.30-5.90); White Blood Cell Count 11.39 K/mm3 (4.00-11.30)
[2022-06-22 07:05] LABS: Bun/Creatinine Ratio 22.7 (12.0-20.0); Calcium, Blood 9.1 mg/dL (8.5-10.1); Creatinine, Blood 0.75 mg/dL (0.60-1.20); Potassium, Blood 3.9 mmol/L (3.5-5.5)
[2022-06-22 07:20] LABS: Albumin, Blood 2.9 g/dL (3.4-5.0); Albumin/Globulin Ratio 0.8 (0.8-1.8); Bilirubin, Direct 0.2 mg/dL (0.0-0.3); Bilirubin, Indirect 0.3 mg/dL (0.1-0.7); Bilirubin, Total 0.5 mg/dL (0.1-1.0); Globulin, Blood 3.8 g/dL (2.2-4.0); Total Protein, Blood 6.7 g/dL (6.4-8.2)
[2022-06-22] MEDS ORDERED: XARELTO1 EAC1 PO (10:59)
== END 2022-06-22 11:24 | disposition home or self-care (01) ==
LOC: ER 00:51
PROVIDERS: Student in an Organized Health Care Education/Training Program
DX: R07.9 Chest pain, unspecified (principal); R06.00 Dyspnea, unspecified; R10.11 Right upper quadrant pain; K80.20 Calculus of gallbladder without cholecystitis without obstruction; I26.99 Other pulmonary embolism without acute cor pulmonale; E78.5 Hyperlipidemia, unspecified; I10 Essential (primary) hypertension; I25.10 Atherosclerotic heart disease of native coronary artery without angina pectoris; K21.9 Gastro-esophageal reflux disease without esophagitis; N40.0 Benign prostatic hyperplasia without lower urinary tract symptoms; Z79.82 Long term (current) use of aspirin; Z79.899 Other long term (current) drug therapy
CPT/HCPCS: 36415; 71260; 76705; 80048; 80076; 83690; 84484; 85025; 93005; 93010; A9270; Q9967

== ENCOUNTER 2023-02-11 22:17 | Emergency (ER) | payer MEDICARE ==
[~2023-02-11] VITALS: Ht 177.8 cm; Wt 145.2 kg
[~2023-02-11 22:17] MED LIST changes: +XARELTO1 EAC1 PO
[2023-02-12] MEDS ORDERED: Robaxin750 MG PO (00:50)
== END 2023-02-12 00:51 | disposition home or self-care (01) ==
LOC: ER 22:17
DX: M62.838 Other muscle spasm (principal); Z79.899 Other long term (current) drug therapy
CPT/HCPCS: 99284-25

== ENCOUNTER → 2023-12-02 | Outpatient (CLI) | payer MEDICARE ==
[~2023-12-02] MED LIST changes: +Bisoprolol Fumar5 MG; +MECL25 PO; +METF500; +ROPI.25; +Robaxin750 MG PO; +Ropinirole HCl1 MG
== END | disposition home or self-care (01) ==
LOC: LAB SHORT 17:35 → LAB 17:35
DX: E11.9 Type 2 diabetes mellitus without complications (principal)
CPT/HCPCS: 82043

== ENCOUNTER 2024-05-19 16:37 | Emergency (ER) | payer MEDICARE ==
[~2024-05-19] VITALS: Ht 177.8 cm; Wt 142.9 kg
[2024-05-19] MEDS ORDERED: Ondansetron HCl 2 MG / ML 2ML Vial IV ONE (16:55)
[2024-05-19 17:38] LABS: BASOPHILS ABSOLUTE AUTO 0.03 K/mm3 (0.00-0.23); BASOPHILS PERCENT AUTO 0 % (0-2); EOSINOPHILS ABSOLUTE AUTO 0.13 K/mm3 (0.00-0.68); EOSINOPHILS PERCENT AUTO 1 % (0-6); Hematocrit 44.6 % (37.0-53.0); Hemoglobin 14.7 g/dL (13.5-17.5); IMMATURE GRAN ABSOLUTE AUTO 0.01 K/mm3 (0.00-0.10); IMMATURE GRAN PERCENT AUTO 0 % (0-1); LYMPHOCYTES ABSOLUTE AUTO 1.34 K/mm3 (0.84-5.20); LYMPHOCYTES PERCENT AUTO 14 % (21-46); MONOCYTES ABSOLUTE AUTO 0.24 K/mm3 (0.16-1.47); MONOCYTES PERCENT AUTO 3 % (4-13); Mean Corpuscular HGB 30.2 pg (26.0-34.0); Mean Corpuscular Volume 92 fL (80-100); Mean Platelet Volume 9.7 fL (9.1-12.4); NEUTROPHILS ABSOLUTE AUTO 7.99 K/mm3 (1.96-9.15); NEUTROPHILS PERCENT AUTO 82 % (41-73); Platelet Count 191 K/mm3 (150-400); RDW Coefficient Variation 13.1 % (11.7-14.2); RDW Standard Deviation 43.9 fL (35.1-46.3); Red Blood Cell Count 4.86 M/mm3 (4.30-5.90); White Blood Cell Count 9.74 K/mm3 (4.00-11.30)
[2024-05-19 17:55] LABS: C-REACTIVE PROTEIN, EXT RANGE 0.791 mg/dL (0.000-0.300)
[2024-05-19 18:00] LABS: Albumin, Blood 3.6 g/dL (3.4-5.0); Albumin/Globulin Ratio 0.9 (0.8-1.8); Bilirubin, Total 0.4 mg/dL (0.1-1.0); Bun/Creatinine Ratio 20.7 (12.0-20.0); Calcium, Blood 9.1 mg/dL (8.5-10.1); Creatinine, Blood 0.77 mg/dL (0.60-1.20); Globulin, Blood 3.8 g/dL (2.2-4.0); Potassium, Blood 3.3 mmol/L (3.5-5.5); Total Protein, Blood 7.4 g/dL (6.4-8.2)
[2024-05-19 18:09] LABS: Influenza A, PCR NEGATIVE (NEGATIVE); Influenza B, PCR NEGATIVE (NEGATIVE); Resp Syncytial Virus, PCR NEGATIVE (NEGATIVE); SARS-Cov-2 (COVID-19) PCR, MMC NEGATIVE (NEGATIVE)
[2024-05-19] MEDS ORDERED: OxyCODONE 5 mg/Acetamin 325 mg TABLET PO ONE (21:45)
[2024-05-19] MEDS ORDERED: RX Prepack 6 Tabs Oxycodone 5mg UD ONE (22:10)
[2024-05-19] MEDS ORDERED: CEPH500 PO (22:12)
[2024-05-19] MEDS ORDERED: Mupirocin22 GM TOP (22:12)
[2024-05-19] MEDS ORDERED: CeFAZolin Sodium 1,000 MG in NS 50 ML IV ONE (22:15)
[2024-05-19 23:11] VITALS: BP 135/73
== END 2024-05-19 23:12 | disposition home or self-care (01) ==
LOC: ER 16:37
PROVIDERS: Physician Assistant
DX: L03.115 Cellulitis of right lower limb (principal); R11.0 Nausea; Z79.899 Other long term (current) drug therapy; Z79.84 Long term (current) use of oral hypoglycemic drugs
CPT/HCPCS: 0241U; 80053; 84145; 85025; 86140; 93971; A9270; J0690; J2405

== ENCOUNTER 2024-05-26 15:50 | Emergency (ER) | payer MEDICARE ==
[~2024-05-26] VITALS: Ht 177.8 cm; Wt 142.9 kg
[~2024-05-26 15:50] MED LIST changes: +Mupirocin22 GM TOP
[2024-05-26 16:07] VITALS: BP 119/74
[2024-05-26 16:29] LABS: BASOPHILS ABSOLUTE AUTO 0.04 K/mm3 (0.00-0.23); BASOPHILS PERCENT AUTO 0 % (0-2); EOSINOPHILS ABSOLUTE AUTO 0.09 K/mm3 (0.00-0.68); EOSINOPHILS PERCENT AUTO 1 % (0-6); Hematocrit 37.2 % (37.0-53.0); Hemoglobin 12.4 g/dL (13.5-17.5); IMMATURE GRAN PERCENT AUTO 3 % (0-1); LYMPHOCYTES ABSOLUTE AUTO 1.44 K/mm3 (0.84-5.20); LYMPHOCYTES PERCENT AUTO 16 % (21-46); MONOCYTES ABSOLUTE AUTO 0.72 K/mm3 (0.16-1.47); MONOCYTES PERCENT AUTO 8 % (4-13); Mean Corpuscular HGB 30.6 pg (26.0-34.0); Mean Corpuscular HGB Conc 33.3 g/dL (31.5-36.5); Mean Corpuscular Volume 92 fL (80-100); Mean Platelet Volume 9.9 fL (9.1-12.4); NEUTROPHILS ABSOLUTE AUTO 6.62 K/mm3 (1.96-9.15); NEUTROPHILS PERCENT AUTO 72 % (41-73); Platelet Count 296 K/mm3 (150-400); RDW Coefficient Variation 14.1 % (11.7-14.2); RDW Standard Deviation 47.8 fL (35.1-46.3); Red Blood Cell Count 4.05 M/mm3 (4.30-5.90); White Blood Cell Count 9.21 K/mm3 (4.00-11.30)
[2024-05-26 17:02] LABS: C-REACTIVE PROTEIN, EXT RANGE 16.6 mg/dL (0.000-0.300)
[2024-05-26 17:05] LABS: Albumin, Blood 2.3 g/dL (3.4-5.0); Albumin/Globulin Ratio 0.5 (0.8-1.8); Bilirubin, Total 0.6 mg/dL (0.1-1.0); Bun/Creatinine Ratio 17.7 (12.0-20.0); Calcium, Blood 8.6 mg/dL (8.5-10.1); Creatinine, Blood 0.79 mg/dL (0.60-1.20); Globulin, Blood 4.7 g/dL (2.2-4.0); Potassium, Blood 4.2 mmol/L (3.5-5.5)
[2024-05-26] MEDS ORDERED: Doxycycline Hyclate 100 MG TAB PO ONE (17:55)
[2024-05-26] MEDS ORDERED: Vibramycin100 MG PO (17:55)
[2024-05-26] MEDS ORDERED: Ultram50 MG PO (17:55)
== END 2024-05-26 18:09 | disposition home or self-care (01) ==
LOC: ER 15:50
PROVIDERS: Physician Assistant
DX: L03.116 Cellulitis of left lower limb (principal); E78.5 Hyperlipidemia, unspecified; I10 Essential (primary) hypertension; K21.9 Gastro-esophageal reflux disease without esophagitis; M19.90 Unspecified osteoarthritis, unspecified site; Z79.84 Long term (current) use of oral hypoglycemic drugs; Z79.899 Other long term (current) drug therapy
CPT/HCPCS: 80053; 85025; 86140; 99284; A9270

== ENCOUNTER 2024-06-06 08:48 | Emergency (ER) | payer MEDICARE ==
[~2024-06-06] VITALS: Ht 177.8 cm; Wt 140.6 kg
[~2024-06-06 08:48] MED LIST changes: +Ultram50 MG PO; +Vibramycin100 MG PO
[2024-06-06 10:02] LABS: BASOPHILS ABSOLUTE AUTO 0.05 K/mm3 (0.00-0.23); BASOPHILS PERCENT AUTO 1 % (0-2); EOSINOPHILS ABSOLUTE AUTO 0.07 K/mm3 (0.00-0.68); EOSINOPHILS PERCENT AUTO 1 % (0-6); Hematocrit 36.2 % (37.0-53.0); Hemoglobin 11.8 g/dL (13.5-17.5); IMMATURE GRAN ABSOLUTE AUTO 0.03 K/mm3 (0.00-0.10); IMMATURE GRAN PERCENT AUTO 0 % (0-1); LYMPHOCYTES ABSOLUTE AUTO 1.35 K/mm3 (0.84-5.20); LYMPHOCYTES PERCENT AUTO 17 % (21-46); MONOCYTES ABSOLUTE AUTO 0.69 K/mm3 (0.16-1.47); MONOCYTES PERCENT AUTO 9 % (4-13); Mean Corpuscular HGB 30.6 pg (26.0-34.0); Mean Corpuscular HGB Conc 32.6 g/dL (31.5-36.5); Mean Corpuscular Volume 94 fL (80-100); Mean Platelet Volume 9.6 fL (9.1-12.4); NEUTROPHILS ABSOLUTE AUTO 5.72 K/mm3 (1.96-9.15); NEUTROPHILS PERCENT AUTO 72 % (41-73); Platelet Count 346 K/mm3 (150-400); RDW Coefficient Variation 13.2 % (11.7-14.2); RDW Standard Deviation 45.6 fL (35.1-46.3); Red Blood Cell Count 3.86 M/mm3 (4.30-5.90); White Blood Cell Count 7.91 K/mm3 (4.00-11.30)
[2024-06-06 10:19] LABS: Albumin, Blood 2.5 g/dL (3.4-5.0); Albumin/Globulin Ratio 0.6 (0.8-1.8); Bilirubin, Total 0.3 mg/dL (0.1-1.0); Bun/Creatinine Ratio 16.9 (12.0-20.0); C-REACTIVE PROTEIN, EXT RANGE 3.62 mg/dL (0.000-0.300); Creatinine, Blood 0.89 mg/dL (0.60-1.20); Globulin, Blood 4.5 g/dL (2.2-4.0); Potassium, Blood 3.7 mmol/L (3.5-5.5)
[2024-06-06 11:30] VITALS: BP 130/75
[2024-06-06] MEDS ORDERED: Lasix20 MG PO (11:34)
[2024-06-06] MEDS ORDERED: Cleocin HCl300 MG PO (11:34)
[2024-06-06] MEDS ORDERED: Clindamycin HCl 150 MG Cap PO ONE (11:35)
[2024-06-06] MEDS ORDERED: Furosemide 10 MG / ML 2ML Vial IV ONE (11:35)
== END 2024-06-06 12:35 | disposition home or self-care (01) ==
LOC: ER 08:48
PROVIDERS: Emergency Medicine
DX: L03.115 Cellulitis of right lower limb (principal); E78.5 Hyperlipidemia, unspecified; I10 Essential (primary) hypertension; K21.9 Gastro-esophageal reflux disease without esophagitis; M19.90 Unspecified osteoarthritis, unspecified site; Z79.84 Long term (current) use of oral hypoglycemic drugs; Z79.2 Long term (current) use of antibiotics; Z79.899 Other long term (current) drug therapy
CPT/HCPCS: 73701; 80053; 83880; 85025; 86140; A9270; J1940; Q9967

== ENCOUNTER → 2024-06-24 | Outpatient (CLI) | payer MEDICARE ==
[~2024-06-24] MED LIST changes: -Bisoprolol Fumar5 MG; +Bisoprolol Fumar5 MG PO; +Cleocin HCl300 MG PO; +HYDCHL25 PO; +Lasix20 MG PO; -METF500; +METF500 PO; -ROPI.25; +ROPI.25 PO; +SULTRIDS PO; +TERB250 PO; +VISBIOME 112.51 EACH PO
[2024-06-24 16:24] LABS: Bun/Creatinine Ratio 17.5 (12.0-20.0); Calcium, Blood 8.8 mg/dL (8.5-10.1); Creatinine, Blood 0.86 mg/dL (0.60-1.20); Potassium, Blood 3.8 mmol/L (3.5-5.5)
== END ==
LOC: LAB 15:10 → LAB SHORT 15:10
PROVIDERS: Family Medicine
DX: L03.115 Cellulitis of right lower limb (principal)
CPT/HCPCS: 80048

== ENCOUNTER → 2024-07-04 | Outpatient (CLI) | payer MEDICARE ==
[~2024-07-04] MED LIST changes: +ALBU90OI INH; -ALBU90OI61 INH; +AMLODIPINE BESY10 MG PO; +LISINOPRIL-HCT1 EACH PO; +OMEP20ER PO; -OMEPRAZOLE MAGN20 MG PO; +OXYB5 PO
== END ==
LOC: LAB 11:17 → LAB SHORT 11:17
DX: B35.3 Tinea pedis (principal)
CPT/HCPCS: 87102; 87220

== ENCOUNTER 2024-08-08 01:11 | Inpatient (IN) | payer MEDICARE ==
[~2024-08-08] VITALS: Ht 177.8 cm; Wt 141.8 kg
[~2024-08-08 01:11] MED LIST changes: -AMLODIPINE BESY10 MG PO; -ASCO500 PO; -LISINOPRIL-HCT1 EACH PO; -OXYB5 PO
[2024-08-08] MEDS ORDERED: OXYB5 PO (01:21)
[2024-08-08 01:56] LABS: Albumin, Blood 3.1 g/dL (3.4-5.0); Albumin/Globulin Ratio 0.8 (0.8-1.8); BASOPHILS ABSOLUTE AUTO 0.04 K/mm3 (0.00-0.23); BASOPHILS PERCENT AUTO 1 % (0-2); Bilirubin, Total 0.5 mg/dL (0.1-1.0); Bun/Creatinine Ratio 23.5 (12.0-20.0); Creatinine, Blood 0.68 mg/dL (0.60-1.20); EOSINOPHILS ABSOLUTE AUTO 0.23 K/mm3 (0.00-0.68); EOSINOPHILS PERCENT AUTO 3 % (0-6); Globulin, Blood 3.8 g/dL (2.2-4.0); Hematocrit 38.8 % (37.0-53.0); Hemoglobin 12.7 g/dL (13.5-17.5); IMMATURE GRAN ABSOLUTE AUTO 0.06 K/mm3 (0.00-0.10); IMMATURE GRAN PERCENT AUTO 1 % (0-1); LYMPHOCYTES ABSOLUTE AUTO 2.21 K/mm3 (0.84-5.20); LYMPHOCYTES PERCENT AUTO 26 % (21-46); MONOCYTES PERCENT AUTO 7 % (4-13); Mean Corpuscular HGB 29.5 pg (26.0-34.0); Mean Corpuscular HGB Conc 32.7 g/dL (31.5-36.5); Mean Corpuscular Volume 90 fL (80-100); Mean Platelet Volume 9.9 fL (9.1-12.4); NEUTROPHILS ABSOLUTE AUTO 5.48 K/mm3 (1.96-9.15); NEUTROPHILS PERCENT AUTO 64 % (41-73); Platelet Count 219 K/mm3 (150-400); Potassium, Blood 3.9 mmol/L (3.5-5.5); RDW Coefficient Variation 14.2 % (11.7-14.2); RDW Standard Deviation 46.6 fL (35.1-46.3); Red Blood Cell Count 4.31 M/mm3 (4.30-5.90); Total Protein, Blood 6.9 g/dL (6.4-8.2); White Blood Cell Count 8.62 K/mm3 (4.00-11.30)
[2024-08-08] MEDS ORDERED: Furosemide 10 MG/ML 4ML Vial IV ONE (03:45)
[2024-08-08] MEDS ORDERED: Ondansetron HCl 2 MG / ML 2ML Vial IV PRN (05:15)
[2024-08-08] MEDS ORDERED: FLU VACC TS2024-25(6MOS UP)/PF 45 MCG/0.5 ML SYRINGE IM ONE ×2 (05:15→15:35)
[2024-08-08 07:13] VITALS: BP 165/81
[2024-08-08] MEDS ORDERED: Albuterol HFA200 ACT/6.7 GM INH INH PRN (07:15)
[2024-08-08] MEDS ORDERED: Omeprazole 20 MG CapCR PO SCH (09:00)
[2024-08-08] MEDS ORDERED: Potassium Chloride 20 MEQ TabCR PO SCH (09:00)
[2024-08-08] MEDS ORDERED: Enoxaparin 40 MG/0.4 ML SYR SC SCH (09:00)
[2024-08-08] MEDS ORDERED: oxyBUTYnin chloride 5 MG TAB PO SCH (09:00)
[2024-08-08] MEDS ORDERED: Tamsulosin HCl 0.4 MG Cap PO SCH (09:00)
[2024-08-08] MEDS ORDERED: Mupirocin 2% Ointment 22 GM TOP SCH (09:00)
[2024-08-08] MEDS ORDERED: HydroCHLOROthiazide 25 mg Tab PO SCH (09:00)
[2024-08-08] MEDS ORDERED: Lactobacil 2-S.Thermo-Bifido 1 1 Cap PO SCH (09:00)
[2024-08-08] MEDS ORDERED: Lisinopril 20 MG Tab PO SCH (09:00)
[2024-08-08] MEDS ORDERED: Metoprolol Succinate 50 MG TABCR PO SCH (09:00)
[2024-08-08] MEDS ORDERED: Finasteride 5 MG Tab PO SCH (09:00)
[2024-08-08] MEDS ORDERED: rOPINIRole HCl 0.25 MG Tab PO SCH (09:00)
[2024-08-08] MEDS ORDERED: Furosemide 10 MG/ML 4ML Vial IV SCH ×2 (09:00→18:00)
[2024-08-08 15:48] VITALS: BP 144/96
--- NOTE | 2024-08-08 18:44 | NUR ---
VSS, A-Ox4 INUPIAT, denies SOB, denies any pain, ambulates with 1x assist and walker, on 2L NC. Lungs diminished, heart regular, bowel sounds normative, content of urine, BLE dressings changed, xeroform, kerlex, justo wrap, C/D/I. Pt can make needs known, call venegas in hand, bed in lowest position.
[2024-08-08 19:41] VITALS: BP 101/72
--- NOTE | 2024-08-09 04:41 | NUR ---
SUMMARY- NO NEW ISSUES NOTED. PT VOIDING WELL. PT USING MALE PUREWICK WHILE SLEEPING. PT REQUIRES NC @ 2LPM. PT USED CPAP WHILE SLEEPING. PT DENIES INCREASED SOB OR CX PAIN. PT DRESSINGS ARE C/D/I. NO ISSUES NOTED ON TELE. CALL LIGHT IN REACH.
[2024-08-09 04:45] VITALS: BP 133/67
[2024-08-09 06:05] LABS: BASOPHILS ABSOLUTE AUTO 0.04 K/mm3 (0.00-0.23); BASOPHILS PERCENT AUTO 1 % (0-2); EOSINOPHILS ABSOLUTE AUTO 0.16 K/mm3 (0.00-0.68); EOSINOPHILS PERCENT AUTO 2 % (0-6); Hematocrit 37.8 % (37.0-53.0); Hemoglobin 12.3 g/dL (13.5-17.5); IMMATURE GRAN ABSOLUTE AUTO 0.02 K/mm3 (0.00-0.10); IMMATURE GRAN PERCENT AUTO 0 % (0-1); LYMPHOCYTES ABSOLUTE AUTO 1.56 K/mm3 (0.84-5.20); LYMPHOCYTES PERCENT AUTO 21 % (21-46); MONOCYTES ABSOLUTE AUTO 0.63 K/mm3 (0.16-1.47); MONOCYTES PERCENT AUTO 8 % (4-13); Mean Corpuscular HGB 29.2 pg (26.0-34.0); Mean Corpuscular HGB Conc 32.5 g/dL (31.5-36.5); Mean Corpuscular Volume 90 fL (80-100); Mean Platelet Volume 9.4 fL (9.1-12.4); NEUTROPHILS ABSOLUTE AUTO 5.21 K/mm3 (1.96-9.15); NEUTROPHILS PERCENT AUTO 68 % (41-73); Platelet Count 206 K/mm3 (150-400); RDW Coefficient Variation 14.3 % (11.7-14.2); RDW Standard Deviation 46.9 fL (35.1-46.3); Red Blood Cell Count 4.21 M/mm3 (4.30-5.90); White Blood Cell Count 7.62 K/mm3 (4.00-11.30)
[2024-08-09 07:04] LABS: Albumin, Blood 2.9 g/dL (3.4-5.0); Albumin/Globulin Ratio 0.8 (0.8-1.8); Bilirubin, Total 0.7 mg/dL (0.1-1.0); Bun/Creatinine Ratio 18.3 (12.0-20.0); Calcium, Blood 8.9 mg/dL (8.5-10.1); Creatinine, Blood 0.87 mg/dL (0.60-1.20); Globulin, Blood 3.7 g/dL (2.2-4.0); Potassium, Blood 3.2 mmol/L (3.5-5.5); Total Protein, Blood 6.6 g/dL (6.4-8.2)
[2024-08-09] MEDS ORDERED: Potassium Chloride 20 MEQ TabCR PO ONE (07:40)
[2024-08-09 07:43] VITALS: BP 128/64
[2024-08-09] MEDS ORDERED: Empagliflozin 10 MG TAB PO SCH (09:00)
[2024-08-09] MEDS ORDERED: Furosemide 10 MG/ML 4ML Vial IV SCH (10:00)
[2024-08-09] MEDS ORDERED: LISINOPRIL-HCT1 EACH PO (13:16)
[2024-08-09] MEDS ORDERED: AMLODIPINE BESY10 MG PO (13:23)
[2024-08-09 15:28] VITALS: BP 124/64
--- NOTE | 2024-08-09 16:15 | NUR ---
VSS, A-Ox4, denies any SOB, denies any pain, ambulates with 1x walker to the bathroom, on 1L NC. Lungs diminished, heart regular, bowel sound normative, content of urine, BLE dressing C/D/I, R dressing changed new dressing C/D/I. Pt can make needs known, call venegas in hand, bed in lowest position.
[2024-08-09 19:49] VITALS: BP 117/64
[2024-08-10 02:24] VITALS: BP 127/65
--- NOTE | 2024-08-10 05:28 | NUR ---
SUMMARY- PT HAD A REPORTED 2.5 SEC PAUSE ON TELE. PT DENIES SOB OR CX PAIN. PT HAS RESTED COMFORTABLY ON CPAP. PT VOIDING WELL. NO OTHER ISSUES NOTED. CALL LIGHT IN REACH.
[2024-08-10 06:48] LABS: Bun/Creatinine Ratio 23.2 (12.0-20.0); Calcium, Blood 9.1 mg/dL (8.5-10.1); Creatinine, Blood 0.91 mg/dL (0.60-1.20); Potassium, Blood 3.5 mmol/L (3.5-5.5)
[2024-08-10 07:27] VITALS: BP 138/76
[2024-08-10] MEDS ORDERED: Mupirocin 2% Ointment 22 GM TOP SCH (09:00)
[2024-08-10 16:07] VITALS: BP 125/68
--- NOTE | 2024-08-10 18:12 | NUR ---
VSS, A-Ox4, denies SOB, denies any pain, ambulates with 1x assist with walker, on RA when awake and CPAP with 2L at night. Lungs diminished, heart regular, NS on tele, bowel sounds normative, contentint of urine. Pt +2 yayo to BLE, BLE dressing changed, new dressings C/D/I. Pt can make needs known, call venegas in hand, bed in lowest position.
[2024-08-10 19:04] VITALS: BP 126/65
--- NOTE | 2024-08-11 04:03 | NUR ---
SHIFT SUMMARY. NO ACUTE CHANGES NOTED. PATIENT A&OX4. JESSICA CALLS APPROPRIATELY AND IS ABLE TO MAKE HIS NEEDS KNOWN. PATIENT WEARING CPAP WITH 2L BLEED IN T/O NIGHT. PATIENT USING 2L VIA NASAL CANNULA DURING THE DAY AT TIMES. PATIENT RESTED T/O NIGHT WITH RESPIRATIONS EQUAL. BED IS LOCKED IN THE LOWEST POSITION WITH CALL LIGHT IN REACH. CARE IS ONGOING.
[2024-08-11 04:27] VITALS: BP 131/71
[2024-08-11 07:00] VITALS: BP 146/69
[2024-08-11] MEDS ORDERED: Acetaminophen 325 MG TABLET PO PRN (11:20)
[2024-08-11] MEDS ORDERED: FURO20 PO (11:46)
[2024-08-11] MEDS ORDERED: IRON PO (12:04)
[2024-08-11] MEDS ORDERED: ASCO500 PO (12:04)
[2024-08-11] MEDS ORDERED: FISH OIL 1,0001 EA10 PO (12:04)
[2024-08-11] MEDS ORDERED: OSTEO-BIFLEX PO (12:05)
[2024-08-11] MEDS ORDERED: CRANBERRY500 M1 PO (12:05)
[2024-08-11] MEDS ORDERED: FOCUS FACTOR PO (12:06)
--- NOTE | 2024-08-11 15:58 | NUR ---
VSS, A-Ox4, denies SOB, states 5 out of 10 pain that was well managed with prn tylenol, ambulates with SB assist and walker, on RA and CPAP with 2L at night. Lungs diminished, heart regular, NS on tele, bowel sounds normative, RLE dressing changed C/D/I, LLE dressing C/D/I. Pt D/C at 1545, D/C insturction given, safety ensured.
== END 2024-08-11 15:45 | disposition home health service (06) | DRG 291 ==
LOC: ER 01:11 → MEDS 04:52
PROVIDERS: Emergency Medicine; Internal Medicine; ADMIT Internal Medicine
PROC: 5A09357 Assistance with Respiratory Ventilation, Less than 24 Consecutive Hours, Continuous Positive Airway Pressure (ICD-10-PCS; principal; 2024-08-08)
DX: I11.0 Hypertensive heart disease with heart failure (principal); I50.33 Acute on chronic diastolic (congestive) heart failure; J96.01 Acute respiratory failure with hypoxia; Z68.41 Body mass index [BMI] 40.0-44.9, adult; N40.0 Benign prostatic hyperplasia without lower urinary tract symptoms; I25.10 Atherosclerotic heart disease of native coronary artery without angina pectoris; G47.33 Obstructive sleep apnea (adult) (pediatric); I35.0 Nonrheumatic aortic (valve) stenosis; E66.9 Obesity, unspecified; E87.6 Hypokalemia; E78.5 Hyperlipidemia, unspecified; K21.9 Gastro-esophageal reflux disease without esophagitis; M19.90 Unspecified osteoarthritis, unspecified site; E11.9 Type 2 diabetes mellitus without complications; Z99.81 Dependence on supplemental oxygen; Z79.899 Other long term (current) drug therapy; Z79.84 Long term (current) use of oral hypoglycemic drugs; Z79.51 Long term (current) use of inhaled steroids; Z98.890 Other specified postprocedural states; Z90.49 Acquired absence of other specified parts of digestive tract
CPT/HCPCS: 36415; 71045; 80048; 80053; 82947; 83880; 84484; 85025; 93005; 93010; 93306; 94760; 96374; 97110; 97116; 97161; 97530; 99285-25; A9270; J1650; J1940

== ENCOUNTER 2025-01-03 00:52 | Day surgery (SDC) | payer MEDICARE ==
[~2025-01-03 00:52] MED LIST changes: +AMLODIPINE BESY10 MG PO; +ASCO500 PO; +CRANBERRY500 M1 PO; +FISH OIL 1,0001 EA10 PO; +FOCUS FACTOR PO; +FURO20 PO; +IRON PO; +LISINOPRIL-HCT1 EACH PO; +OSTEO-BIFLEX PO; +OXYB5 PO
== END 2025-01-03 23:00 | disposition home or self-care (01) ==
LOC: WOUND 00:52
DX: E11.622 Type 2 diabetes mellitus with other skin ulcer (principal); L97.211 Non-pressure chronic ulcer of right calf limited to breakdown of skin; I10 Essential (primary) hypertension; I87.2 Venous insufficiency (chronic) (peripheral); E11.51 Type 2 diabetes mellitus with diabetic peripheral angiopathy without gangrene; Z87.828 Personal history of other (healed) physical injury and trauma

== ENCOUNTER 2025-01-10 00:17 | Day surgery (SDC) | payer MEDICARE | END 2025-01-10 23:00 | disposition home or self-care (01) | LOC: WOUND 00:17 | DX: I83.018 Varicose veins of right lower extremity with ulcer other part of lower leg (principal); L97.812 Non-pressure chronic ulcer of other part of right lower leg with fat layer exposed; L97.211 Non-pressure chronic ulcer of right calf limited to breakdown of skin; I83.12 Varicose veins of left lower extremity with inflammation; E11.51 Type 2 diabetes mellitus with diabetic peripheral angiopathy without gangrene; I10 Essential (primary) hypertension; Z87.828 Personal history of other (healed) physical injury and trauma ==

== ENCOUNTER 2025-01-17 03:33 | Day surgery (SDC) | payer MEDICARE | END 2025-01-17 23:13 | disposition home or self-care (01) | LOC: WOUND 03:33 | DX: I83.218 Varicose veins of right lower extremity with both ulcer of other part of lower extremity and inflammation (principal); L97.812 Non-pressure chronic ulcer of other part of right lower leg with fat layer exposed; I83.12 Varicose veins of left lower extremity with inflammation; I10 Essential (primary) hypertension; E11.51 Type 2 diabetes mellitus with diabetic peripheral angiopathy without gangrene; Z87.828 Personal history of other (healed) physical injury and trauma ==

== ENCOUNTER 2025-01-26 00:36 | Day surgery (SDC) | payer MEDICARE | END 2025-01-26 23:00 | disposition home or self-care (01) | LOC: WOUND 00:36 | DX: L97.812 Non-pressure chronic ulcer of other part of right lower leg with fat layer exposed (principal); L97.211 Non-pressure chronic ulcer of right calf limited to breakdown of skin; I83.11 Varicose veins of right lower extremity with inflammation; I83.12 Varicose veins of left lower extremity with inflammation; I73.9 Peripheral vascular disease, unspecified ==

== ENCOUNTER 2025-02-02 02:31 | Day surgery (SDC) | payer MEDICARE | END 2025-02-02 23:00 | disposition home or self-care (01) | LOC: WOUND 02:31 | DX: E11.622 Type 2 diabetes mellitus with other skin ulcer (principal); L97.819 Non-pressure chronic ulcer of other part of right lower leg with unspecified severity; I10 Essential (primary) hypertension; I87.2 Venous insufficiency (chronic) (peripheral); E11.51 Type 2 diabetes mellitus with diabetic peripheral angiopathy without gangrene; Z87.828 Personal history of other (healed) physical injury and trauma | CPT/HCPCS: G0463 ==

== ENCOUNTER 2025-02-07 00:19 | Inpatient (IN) | payer MEDICARE ==
[~2025-02-07] VITALS: Ht 172.7 cm; Wt 135.5 kg
[~2025-02-07 00:19] MED LIST changes: -LISINOPRIL-HCT1 EACH PO; +VITAMIN D31000 UNI1 PO; -VITAMIN D34000 UNIT PO; +ZESTORETIC 20-251 EA PO
[2025-02-07 00:46] LABS: BASOPHILS ABSOLUTE AUTO 0.03 K/mm3 (0.00-0.23); BASOPHILS PERCENT AUTO 0 % (0-2); EOSINOPHILS ABSOLUTE AUTO 0.04 K/mm3 (0.00-0.68); EOSINOPHILS PERCENT AUTO 0 % (0-6); Hemoglobin 14.2 g/dL (13.5-17.5); IMMATURE GRAN ABSOLUTE AUTO 0.06 K/mm3 (0.00-0.10); IMMATURE GRAN PERCENT AUTO 0 % (0-1); LYMPHOCYTES ABSOLUTE AUTO 0.56 K/mm3 (0.84-5.20); LYMPHOCYTES PERCENT AUTO 4 % (21-46); MONOCYTES ABSOLUTE AUTO 0.32 K/mm3 (0.16-1.47); MONOCYTES PERCENT AUTO 2 % (4-13); Mean Corpuscular HGB 29.2 pg (26.0-34.0); Mean Corpuscular Volume 89 fL (80-100); Mean Platelet Volume 9.4 fL (9.1-12.4); NEUTROPHILS ABSOLUTE AUTO 12.46 K/mm3 (1.96-9.15); NEUTROPHILS PERCENT AUTO 93 % (41-73); Platelet Count 215 K/mm3 (150-400); RDW Coefficient Variation 12.9 % (11.7-14.2); RDW Standard Deviation 41.9 fL (35.1-46.3); Red Blood Cell Count 4.86 M/mm3 (4.30-5.90); White Blood Cell Count 13.47 K/mm3 (4.00-11.30)
[2025-02-07] MEDS ORDERED: CefTRIAXone Sodium 1,000 MG in NS 50 ML IV ONE (01:00)
[2025-02-07 01:04] LABS: Albumin, Blood 3.3 g/dL (3.4-5.0); Albumin/Globulin Ratio 0.8 (0.8-1.8); Bilirubin, Total 0.5 mg/dL (0.1-1.0); Bun/Creatinine Ratio 19.4 (12.0-20.0); Creatinine, Blood 0.67 mg/dL (0.60-1.20); Globulin, Blood 4.3 g/dL (2.2-4.0); Potassium, Blood 3.4 mmol/L (3.5-5.5); Total Protein, Blood 7.6 g/dL (6.4-8.2)
[2025-02-07] MEDS ORDERED: Cefepime HCl 2,000 MG in NS 100 ML IV ONE (01:05)
[2025-02-07 01:25] LABS: Influenza A, PCR NEGATIVE (NEGATIVE); Influenza B, PCR NEGATIVE (NEGATIVE); Resp Syncytial Virus, PCR NEGATIVE (NEGATIVE); SARS-Cov-2 (COVID-19) PCR, MMC NEGATIVE (NEGATIVE)
[2025-02-07] MEDS ORDERED: Potassium Chloride 20 MEQ TabCR PO ONE (04:00)
[2025-02-07 04:27] VITALS: BP 105/57
[2025-02-07] MEDS ORDERED: POTA10T PO ×2 (05:01→05:02)
[2025-02-07] MEDS ORDERED: ATOR40TA PO (05:03)
[2025-02-07] MEDS ORDERED: Pentoxifylline400 MG PO (05:05)
[2025-02-07] MEDS ORDERED: FAMO20 PO (05:05)
--- NOTE | 2025-02-07 05:42 | NUR ---
SHIFT SUMMARY PT ARRIVED @ 0445 TO PCU. VSS ON 1-2L NC WHILE SLEEPING >96%. NO SOB NOTED. ON TELE, NSR 90s. PT HAS MILD PAIN IN RLE. PT USING URINAL AT BEDSIDE. NO FURTHER QUESTIONS OR CONCERNS AT THIS TIME. WILL CONTINUE WITH PLAN OF CARE.
[2025-02-07] MEDS ORDERED: Albuterol HFA200 ACT/6.7 GM INH INH PRN (06:50)
--- NOTE | 2025-02-07 07:27 | NUR ---
ASSUMPTION NOTE: THIS RN TO ASSUME CARE OF PATIENT. PATIENT AWAKE AND WAS WITH LAB GETTING BLOOD DRAWN. MD AT BEDSIDE AFTER LAB AND CHATTING WITH PATIENT. PATIENT AWARE THAT HE IS NPO AWAITING AN ECHO. HAS CALL LIGHT WITHIN REACH & BED IN LOWEST POSITION.
[2025-02-07 07:36] VITALS: BP 113/77
[2025-02-07 07:58] LABS: Anti-Xa UFH, PHA Monitoring <0.10 IU/mL; International Normalized Ratio 1.04; Prothrombin Time Results 11.1 Sec (9.7-11.5)
[2025-02-07] MEDS ORDERED: Lactated Ringer's 1,000 ML IV SCH (08:00)
[2025-02-07] MEDS ORDERED: CeFAZolin Sodium 1,000 MG in NS 50 ML IV SCH (08:00)
[2025-02-07] MEDS ORDERED: Potassium Chloride 10 Meq Tablet SA PO SCH (08:00)
[2025-02-07] MEDS ORDERED: Dose Adjust by Pharmacy XX STA (08:10)
[2025-02-07] MEDS ORDERED: Heparin Sodium 5000 Units/ML 1ML MDV IV ONE (08:15)
[2025-02-07] MEDS ORDERED: Heparin Sodium,Porcine/0.5 NS 500 ML IV SCH (08:15)
[2025-02-07] MEDS ORDERED: Pentoxifylline 400 MG TabCR PO SCH (08:30)
[2025-02-07] MEDS ORDERED: Finasteride 5 MG Tab PO SCH (09:00)
[2025-02-07] MEDS ORDERED: Lactobacil 2-S.Thermo-Bifido 1 1 Cap PO SCH (09:00)
[2025-02-07] MEDS ORDERED: Atorvastatin 40 MG Tab PO SCH (09:00)
[2025-02-07] MEDS ORDERED: Cholecalciferol 1000 Unit Tablet (=25MCG) PO SCH (09:00)
[2025-02-07] MEDS ORDERED: Lisinopril 20 MG Tab PO SCH (09:00)
[2025-02-07] MEDS ORDERED: HydroCHLOROthiazide 25 mg Tab PO SCH (09:00)
[2025-02-07] MEDS ORDERED: Ascorbic Acid 500 MG Tab PO SCH (09:00)
[2025-02-07] MEDS ORDERED: rOPINIRole HCl 0.25 MG Tab PO SCH (09:00)
[2025-02-07] MEDS ORDERED: Docosahexanoic Acid/EPA 1,000 MG CAP PO SCH (09:00)
[2025-02-07] MEDS ORDERED: Metoprolol Succinate 50 MG TABCR PO SCH (09:00)
[2025-02-07] MEDS ORDERED: Cranberry Extract 250MG W/30 MG Vitamin C Tab PO SCH (09:00)
[2025-02-07] MEDS ORDERED: Furosemide 20 MG Tab PO SCH (09:00)
[2025-02-07] MEDS ORDERED: Tamsulosin HCl 0.4 MG Cap PO SCH (09:00)
[2025-02-07] MEDS ORDERED: Famotidine 20 MG Tab PO SCH (09:00)
[2025-02-07] MEDS ORDERED: Aspirin 81 MG Chew PO SCH (09:00)
--- NOTE | 2025-02-07 09:36 | NUR ---
MD CONTACTED PATIENT REPORTED 8/10 PAIN IN THE RIGHT LEG, NO ANSWER WILL CALL AGAIN
--- NOTE | 2025-02-07 09:41 | NUR ---
MD TO PLACE ORDERS FOR PAIN MEDICATIONS.
[2025-02-07] MEDS ORDERED: Acetaminophen 325 MG TABLET PO PRN (09:50)
[2025-02-07] MEDS ORDERED: OxyCODONE HCL 5 MG TAB PO PRN (09:50)
--- NOTE | 2025-02-07 15:10 | NUR ---
called: called due to troponin elevated, awaiting further orders
--- NOTE | 2025-02-07 16:35 | NUR ---
SHIFT SUMMARY: PATIENT IS ALERT AND ORIENTED X4 & ACTIVE IN HIS CARE, IS ABLE TO MAKE NEEDS KNOWN & USES CALL LIGHT APPROPRIATELY. PATIENT IS ON TELE SHOWING SINUS RYTHM WITH RATE IN 70'S. SATTING >92% ON 1 LITER VIA NASAL CANNULA WHEN SLEEPING AND ON ROOM AIR AT TIMES. PATIENT WAS STARTED ON HEPARIN FOR A BIT TODAY & TROPONINS CONTINUE TO BE TRENDING. PATIENT DID NOT FEEL UP TO GETTING OUT OF BED TODAY DUE TO BE WEAK & HAVING SOME JOINT PAIN. PAIN MEDICATIONS WERE ADDED TO EMAR & PATIENT TOLERATED THEM WELL TODAY. DID GET IV ANTIBIOTICS & 1 LTIER OF FLUIDS TODAY. PATIENT AT BEDSIDE THROUGHOUT SHIFT. PATIENT HAS CALL LIGHT WITHIN REACH & BED IN LOWEST POISITION, STATING NOTHING IS NEEDED AT THIS TIME.
[2025-02-07 17:10] VITALS: BP 150/67
[2025-02-07 20:00] VITALS: BP 129/71
--- NOTE | 2025-02-07 23:40 | NUR ---
REPORT RECEIVED FROM NIKI, COLLECT ON DELIVERY CLERK AND AWAITING PT T/F TO ROOM 301.
[2025-02-08] VITALS: BP 112/64
[2025-02-08 03:10] VITALS: BP 132/71
--- NOTE | 2025-02-08 03:43 | NUR ---
POSITIVE BLOOD CULTURES: ALERTED TO GRAM POSITIVE COCCI IN CHAINS W/PRIOR GRAM POSITIVE COCCI IN CLUSTERS. PT ONLY ON ANCEF AT THIS TIME. STATED HE'D LOOK INTO PT'S CHART AND LIKELY CHANGE ANTIBIOTICS.
[2025-02-08] MEDS ORDERED: Vancomycin HCL 2,500 MG in NS 500 ML IV ONE (04:10)
[2025-02-08 04:50] LABS: BASOPHILS ABSOLUTE AUTO 0.03 K/mm3 (0.00-0.23); BASOPHILS PERCENT AUTO 0 % (0-2); EOSINOPHILS ABSOLUTE AUTO 0.01 K/mm3 (0.00-0.68); EOSINOPHILS PERCENT AUTO 0 % (0-6); Hematocrit 37.5 % (37.0-53.0); Hemoglobin 12.2 g/dL (13.5-17.5); IMMATURE GRAN ABSOLUTE AUTO 0.03 K/mm3 (0.00-0.10); IMMATURE GRAN PERCENT AUTO 0 % (0-1); LYMPHOCYTES ABSOLUTE AUTO 0.67 K/mm3 (0.84-5.20); LYMPHOCYTES PERCENT AUTO 7 % (21-46); MONOCYTES ABSOLUTE AUTO 0.53 K/mm3 (0.16-1.47); MONOCYTES PERCENT AUTO 6 % (4-13); Mean Corpuscular HGB 29.1 pg (26.0-34.0); Mean Corpuscular HGB Conc 32.5 g/dL (31.5-36.5); Mean Corpuscular Volume 90 fL (80-100); Mean Platelet Volume 9.7 fL (9.1-12.4); NEUTROPHILS PERCENT AUTO 86 % (41-73); Platelet Count 169 K/mm3 (150-400); RDW Coefficient Variation 13.3 % (11.7-14.2); RDW Standard Deviation 44.2 fL (35.1-46.3); Red Blood Cell Count 4.19 M/mm3 (4.30-5.90); White Blood Cell Count 9.37 K/mm3 (4.00-11.30)
--- NOTE | 2025-02-08 05:11 | NUR ---
SUMMARY: PT T/F TO ROOM 301 VIA BED AT 2354. HE'S A/OX4 WAS ORIENTED TO NEW ROOM AND CALL SYSTEM AND IS AWARE OF LIMITIATIONS. HE HASN'T BEEN OOB SINCE ARRIVAL TO UNIT BUT IS 2PA W/FWW D/T INCREASED WEAKNESS AND LLE CELLULITIS. DX TO LEG REMAINS C/D/I W/PITTING EDEMA OBSERVED FROM MIDTHIGH DOWN TO FOOT. RN REPORTED SKIN IS INTACT W/O ANY OPEN SORES BUT REMAINS RED W/VENOUS STASIS APPEARING ULCERATION. IV ABX WERE CHANGED TO VANCOMYCIN DUE TO GRAM POSITIVE COCCI IN CLUSTERS + CHAINS AND 1ST DOSE WAS RECEIVED. L.GROIN EXCORIATION PERSISTS AND POWDER WAS APPLIED W/URINAL ASSIST PROVIDED PRN. HE ARRIVED ON RA BUT SPO2 WAS <90% UPON SO O2 WAS BEGAN AGAIN AT 1L O2 VIA NC FOR SPO2 WNL. CONT BIOX NOW INTACT AND CPAP PROTOCOL RX'D BUT PT REFUSED USE TONIGHT. HE'S DENIED NEEDING PRN PAIN MEDS BUT REPORTED OCC.JOINT PAIN IN PCU. NO ACUTE CHANGES. VSS/AFEBRILE AND PT REMAINS IN NSR ON TELE. WILL REPORT TO DAY RN.
[2025-02-08 05:13] LABS: Bun/Creatinine Ratio 27.9 (12.0-20.0); Calcium, Blood 8.3 mg/dL (8.5-10.1); Creatinine, Blood 0.83 mg/dL (0.60-1.20); Potassium, Blood 3.7 mmol/L (3.5-5.5)
[2025-02-08 07:23] VITALS: BP 134/69
[2025-02-08] MEDS ORDERED: Enoxaparin 40 MG/0.4 ML SYR SC SCH (09:00)
[2025-02-08 12:04] VITALS: BP 138/77
[2025-02-08 15:40] VITALS: BP 143/77
--- NOTE | 2025-02-08 19:48 | NUR ---
SUMMARY- PT A/O X4, USES CALL LIGHT APPROPRIATLY. LLE CELLULITIS WRAPPED WITH DRESSING AND SHIVANI, ABLE TO AFUA, DENEIS N/T. STATES PAIN IN LLE ONLY WHEN HE IS MOVING AND USING HIS LEG. OXY PRN EFFECTIVE FOR PAIN. PT TOLERATING FOOD AND FLUID. STARTED PHYSICAL TX TODAY. PT SAT IN CHAIR MOST OF THE DAY. ELEVATING LEG MUCH POSSIBLE. VSS, REPORTED OFF TO JOCELYN LIANG RN
[2025-02-08 21:06] VITALS: BP 149/81
[2025-02-09 02:53] VITALS: BP 143/76
[2025-02-09 03:32] LABS: BASOPHILS ABSOLUTE AUTO 0.03 K/mm3 (0.00-0.23); BASOPHILS PERCENT AUTO 1 % (0-2); EOSINOPHILS PERCENT AUTO 2 % (0-6); Hematocrit 37.4 % (37.0-53.0); Hemoglobin 12.5 g/dL (13.5-17.5); IMMATURE GRAN ABSOLUTE AUTO 0.02 K/mm3 (0.00-0.10); IMMATURE GRAN PERCENT AUTO 0 % (0-1); LYMPHOCYTES ABSOLUTE AUTO 1.24 K/mm3 (0.84-5.20); LYMPHOCYTES PERCENT AUTO 20 % (21-46); MONOCYTES PERCENT AUTO 11 % (4-13); Mean Corpuscular HGB 29.5 pg (26.0-34.0); Mean Corpuscular HGB Conc 33.4 g/dL (31.5-36.5); Mean Corpuscular Volume 88 fL (80-100); Mean Platelet Volume 9.8 fL (9.1-12.4); NEUTROPHILS ABSOLUTE AUTO 4.16 K/mm3 (1.96-9.15); NEUTROPHILS PERCENT AUTO 67 % (41-73); Platelet Count 173 K/mm3 (150-400); RDW Coefficient Variation 13.2 % (11.7-14.2); RDW Standard Deviation 42.8 fL (35.1-46.3); Red Blood Cell Count 4.24 M/mm3 (4.30-5.90); White Blood Cell Count 6.25 K/mm3 (4.00-11.30)
[2025-02-09 03:52] LABS: Bun/Creatinine Ratio 28.8 (12.0-20.0); Calcium, Blood 8.6 mg/dL (8.5-10.1); Creatinine, Blood 0.8 mg/dL (0.60-1.20); Potassium, Blood 3.4 mmol/L (3.5-5.5)
[2025-02-09 03:57] LABS: Vancomycin, Random 11.4 ug/mL
[2025-02-09] MEDS ORDERED: Vancomycin HCL 1,500 MG in NS 250 ML IV SCH (04:19)
[2025-02-09 07:41] VITALS: BP 147/82
[2025-02-09] MEDS ORDERED: Potassium Chloride 20 MEQ TabCR PO ONE (08:00)
[2025-02-09] MEDS ORDERED: Potassium Chlo20 ME1 PO (10:51)
[2025-02-09] MEDS ORDERED: CeFAZolin Sodium 2,000 MG in NS 100 ML IV SCH (16:00)
[2025-02-09 16:06] VITALS: BP 153/78
[2025-02-09] MEDS ORDERED: NS 250 ML IV PRN (16:15)
--- NOTE | 2025-02-09 19:53 | NUR ---
SUMMARY- PT A/O X4, UP TO THE CHAIR 1-2 PERSON GAIT/WALKER TO THE CHAIR, GOOD STRENGTH, UNABLE TO AMBULATE ANY DISTANCE, SHUFFELING GAIT. PT'S RLE RE WRAPPED AFTER SOAK AND CLEANSED OFF OLD SKIN. RLE EDEMA +2, DISCOLERED AND PEALING, MIN WARMPTH. PAIN CONTROLLED WITH OXYCODONE 5MG PRN. PT TOLERATING FOOD AND FLUID. VSS. PHYSICAL THERAPY EVAL COMPLETED. REPORTED TO AZUL AZUL
[2025-02-09 20:02] VITALS: BP 154/81
--- NOTE | 2025-02-09 20:03 | NUR ---
SUMMARY- PT A/O X4. UP IN CHAIR MOST OF THE DAY. TOLERATING TUBE FEEDS TO GOAL, RESIDUAL CHECK 100ML THIS AM. DENIES ANY NAUSEA. C/O PAIN IN LEGS AND BACK, SUBOXONE ADMIN IN AM, MORPHINE 2MG PRN BTP EFFECTIVE. PT HAD XXXX LG BM TODAY AFTER LAXATIVE REGIMINE- STOOL WAS HARD BROWN 3"X12" (THE SIZE OF MY FOREARM)- PT FEELS MUCH RELEIVED. NO BLOOD, NO FAT NOTED IN BOWEL. DR DEJESUS CONSULTED WITH THIS PT THIS PM, EXPLAINED THAT HIS ESOPHAGUSHAS A SEVERE STRICTURE AND IF HE WANTS TO EVER EAT WITHOUT TUBE FEED HE WOULD RECOMMENT PT GOING TO A HOSPITAL THAT COULD PERFORM THIS PROCEDURE TO CORRECT PROBLEM. PT CONT TO HAVE LOW BP'S, SUSTAINING THE SAME LOW PRESUER. PT DOES NOT COMPLAIN OF DIZZINESS. REPORTED TO AZUL AZUL
[2025-02-09] MEDS ORDERED: Enoxaparin 40 MG/0.4 ML SYR SC SCH (21:00)
[2025-02-10 04:50] LABS: BASOPHILS ABSOLUTE AUTO 0.02 K/mm3 (0.00-0.23); BASOPHILS PERCENT AUTO 0 % (0-2); EOSINOPHILS ABSOLUTE AUTO 0.09 K/mm3 (0.00-0.68); EOSINOPHILS PERCENT AUTO 1 % (0-6); Hematocrit 37.2 % (37.0-53.0); Hemoglobin 12.3 g/dL (13.5-17.5); IMMATURE GRAN ABSOLUTE AUTO 0.02 K/mm3 (0.00-0.10); IMMATURE GRAN PERCENT AUTO 0 % (0-1); LYMPHOCYTES ABSOLUTE AUTO 1.36 K/mm3 (0.84-5.20); LYMPHOCYTES PERCENT AUTO 20 % (21-46); MONOCYTES ABSOLUTE AUTO 0.87 K/mm3 (0.16-1.47); MONOCYTES PERCENT AUTO 13 % (4-13); Mean Corpuscular HGB 29.6 pg (26.0-34.0); Mean Corpuscular HGB Conc 33.1 g/dL (31.5-36.5); Mean Corpuscular Volume 89 fL (80-100); Mean Platelet Volume 9.9 fL (9.1-12.4); NEUTROPHILS ABSOLUTE AUTO 4.37 K/mm3 (1.96-9.15); NEUTROPHILS PERCENT AUTO 65 % (41-73); Platelet Count 191 K/mm3 (150-400); RDW Standard Deviation 42.4 fL (35.1-46.3); Red Blood Cell Count 4.16 M/mm3 (4.30-5.90); White Blood Cell Count 6.73 K/mm3 (4.00-11.30)
[2025-02-10 05:07] VITALS: BP 153/78
[2025-02-10 05:36] LABS: Bun/Creatinine Ratio 21.6 (12.0-20.0); Calcium, Blood 8.4 mg/dL (8.5-10.1); Creatinine, Blood 0.83 mg/dL (0.60-1.20); Potassium, Blood 3.3 mmol/L (3.5-5.5)
--- NOTE | 2025-02-10 05:36 | NUR ---
SHIFT SUMMARY PT SLEPT LONG INTERVALS THROUGH THE NIGHT WITH CPAP/ 2L O2 BLEED IN. DRESSING INTACT TO RLE. PT DENIES THE NEED FOR PAIN MEDICATION THIS SHIFT. ABLE TO TURN SELF IN BED. IV ANTIBIOTICS CONTINUE PER ORDER. BED IN LOWEST POSITION, CALL LIGHT WITHIN REACH, SIDERAILS UP X2.
[2025-02-10 07:09] VITALS: BP 148/80
--- NOTE | 2025-02-10 07:35 | NUR ---
ASSUMPTION OF CARE: ASSUMED CARE OF PATIENT. PATIENT AWAKE DURING BEDSIDE SHIFT REPORT, LYING IN BED, WATCHING TV. SALINE LOCKED LAC. CPAP c 2LPM BLEED-IN AND CONTINUOUS BiOx IN PLACE. COMPRESSION WRAP LLE. BED IN LOWEST POSITION. CALL LIGHT WITHIN REACH. NO ACUTE NEEDS.
[2025-02-10] MEDS ORDERED: Potassium Chloride 20 MEQ TabCR PO ONE (12:00)
--- NOTE | 2025-02-10 18:01 | NUR ---
END OF SHIFT SUMMARY: A&Ox4. PLEASANT AND COOPERATIVE WITH CARE. CALLS APPROPRIATELY AND IS ABLE TO ADVOCATE NEEDS EFFECTIVELY. CONTINENT c URGE INCONTINENCE. LBM TODAY. AMBULATES 1PA c FWW; DOES HAVE SOME DIFFICULTY WITH STANDING D/T KNEE PAIN. MEDS WHOLE c FLUIDS. CONTINUOUS BiOx IN PLACE AND MAINTAINING SPO2 >92% ON RA; 2LPM BLEED-IN TO CPAP WHEN SLEEPING. ONE OF TWO BLOOD CULTURES POSITIVE FOR GRAM-POSITIVE COCCI IN CLUSTERS. PT/OT BOTH EVALUATED AND Tx D TODAY. PLAN IS TO GO HOME c HOME HEALTH. MEDICATED PRN PAIN x2 TODAY C / O KNEE PAIN. BED IN LOWEST POSITION, CALL LIGHT WITHIN REACH, ALL NEEDS MET. REPORT TO ONCOMING NURSE.
[2025-02-10 21:02] VITALS: BP 148/78
[2025-02-11 04:35] VITALS: BP 146/82
[2025-02-11 05:41] LABS: BASOPHILS ABSOLUTE AUTO 0.03 K/mm3 (0.00-0.23); BASOPHILS PERCENT AUTO 1 % (0-2); EOSINOPHILS ABSOLUTE AUTO 0.13 K/mm3 (0.00-0.68); EOSINOPHILS PERCENT AUTO 2 % (0-6); Hematocrit 37.5 % (37.0-53.0); Hemoglobin 12.5 g/dL (13.5-17.5); IMMATURE GRAN ABSOLUTE AUTO 0.04 K/mm3 (0.00-0.10); IMMATURE GRAN PERCENT AUTO 1 % (0-1); LYMPHOCYTES ABSOLUTE AUTO 1.52 K/mm3 (0.84-5.20); LYMPHOCYTES PERCENT AUTO 24 % (21-46); MONOCYTES ABSOLUTE AUTO 0.82 K/mm3 (0.16-1.47); MONOCYTES PERCENT AUTO 13 % (4-13); Mean Corpuscular HGB 29.4 pg (26.0-34.0); Mean Corpuscular HGB Conc 33.3 g/dL (31.5-36.5); Mean Corpuscular Volume 88 fL (80-100); NEUTROPHILS ABSOLUTE AUTO 3.92 K/mm3 (1.96-9.15); NEUTROPHILS PERCENT AUTO 61 % (41-73); Platelet Count 211 K/mm3 (150-400); RDW Coefficient Variation 12.9 % (11.7-14.2); RDW Standard Deviation 41.6 fL (35.1-46.3); Red Blood Cell Count 4.25 M/mm3 (4.30-5.90); White Blood Cell Count 6.46 K/mm3 (4.00-11.30)
[2025-02-11 05:58] LABS: Bun/Creatinine Ratio 22.8 (12.0-20.0); Calcium, Blood 8.3 mg/dL (8.5-10.1); Creatinine, Blood 0.7 mg/dL (0.60-1.20); Potassium, Blood 3.2 mmol/L (3.5-5.5)
--- NOTE | 2025-02-11 06:17 | NUR ---
SHIFT SUMMARY PATIENT MAINTAIN CALM SHIFT WITH US ALL HIS DUE MEDICATION WHERE SERVED IV CEPHIZONE ANTIBIOTIC WHERE GIVEN, TO BE DUE AGAIN BY 8:00AM.CALL BELLS ANWSERED PROMPTLY. LODGED NIL FRESH COMPLAINT,ORIENTED, NO OBVIOUS DYPSNEA, HIS IV LINE FLUSHED WITH 10MLS OF NORMAL SALINE.
[2025-02-11 07:14] VITALS: BP 157/83
[2025-02-11] MEDS ORDERED: Potassium Chloride 20 MEQ TabCR PO SCH (07:30)
--- NOTE | 2025-02-11 14:43 | NUR ---
UPDATE: MD AT BEDSIDE, ABLE TO ASSESS PT RLE. PLAN FOR DAILY DRESSING CHANGES.
[2025-02-11 14:46] VITALS: BP 146/81
--- NOTE | 2025-02-11 17:09 | NUR ---
SHIFT SUMMARY: ASSUMED CARE OF PT @1300. PT ALERT AND ORIENTED X4, ABLE TO FOLLOW COMMANDS AND MAKE NEEDS KNOWN. BP AND HR STABLE. AFEBRILE. SPO2 >96% ON ROOM AIR. LUNG SOUNDS CLEAR IN UPPER, DIM IN BASES. ABD DISTENDED, NON TENDER, BOWEL SOUNDS +. PULSES PALPABLE. PT CONT OF URINE/BOWEL. PT ABLE TO SHOWER THIS SHIFT WITH ONE PERSON ASSIST. DAILY DRESSING CHANGED COMPLETED ON . PLAN FOR POSSIBLE DC THURSDAY, WITH POWERGLIDE OR PICC FOR OUTPATIENT ANTIBIOTICS. PT AWARE AND AGREEABLE TO PLAN OF CARE. BED IN LOW, CALL LIGHT IN REACH, WILL REPORT TO ONCOMING RN,
[2025-02-11 19:13] VITALS: BP 121/93
[2025-02-12 02:57] VITALS: BP 146/72
[2025-02-12 04:46] LABS: BASOPHILS ABSOLUTE AUTO 0.03 K/mm3 (0.00-0.23); BASOPHILS PERCENT AUTO 0 % (0-2); EOSINOPHILS ABSOLUTE AUTO 0.16 K/mm3 (0.00-0.68); EOSINOPHILS PERCENT AUTO 2 % (0-6); Hemoglobin 13.7 g/dL (13.5-17.5); IMMATURE GRAN ABSOLUTE AUTO 0.06 K/mm3 (0.00-0.10); IMMATURE GRAN PERCENT AUTO 1 % (0-1); LYMPHOCYTES ABSOLUTE AUTO 1.74 K/mm3 (0.84-5.20); LYMPHOCYTES PERCENT AUTO 23 % (21-46); MONOCYTES ABSOLUTE AUTO 0.63 K/mm3 (0.16-1.47); MONOCYTES PERCENT AUTO 8 % (4-13); Mean Corpuscular HGB 29.4 pg (26.0-34.0); Mean Corpuscular HGB Conc 33.4 g/dL (31.5-36.5); Mean Corpuscular Volume 88 fL (80-100); Mean Platelet Volume 9.8 fL (9.1-12.4); NEUTROPHILS ABSOLUTE AUTO 5.09 K/mm3 (1.96-9.15); NEUTROPHILS PERCENT AUTO 66 % (41-73); Platelet Count 255 K/mm3 (150-400); RDW Coefficient Variation 12.8 % (11.7-14.2); RDW Standard Deviation 41.1 fL (35.1-46.3); Red Blood Cell Count 4.66 M/mm3 (4.30-5.90); White Blood Cell Count 7.71 K/mm3 (4.00-11.30)
[2025-02-12 04:59] LABS: Bun/Creatinine Ratio 22.7 (12.0-20.0); Calcium, Blood 8.9 mg/dL (8.5-10.1); Creatinine, Blood 0.7 mg/dL (0.60-1.20); Potassium, Blood 3.3 mmol/L (3.5-5.5)
--- NOTE | 2025-02-12 05:29 | NUR ---
SHIFT SUMMARY PT SLEPT INTERMITTENTLY THROUGH THE NIGHT. MEDICATED FOR PAIN PER EMAR. IV ANTIBIOTIC PER ORDER. PT USING CPAP WHILE SLEEPING- CONTINUOUS PULSE OX ON. BED IN LOWEST POSITION, CALL LIGHT WITHIN REACH, SIDERAILS UP X2.
[2025-02-12 07:03] VITALS: BP 150/102
[2025-02-12] MEDS ORDERED: Potassium Chloride 20 MEQ TabCR PO ONE (08:00)
--- NOTE | 2025-02-12 18:40 | NUR ---
assumed care pt is very pleasent a/o vss and is able to make needs known. pt needing 2 person assist to stand at bed or be assited with repositioning. pt medicated for pain to knees and feet. lab notifed of positive blood cultures and charge nurse notified. pt is expected to have positive results. Dr geller arrived and was notifed. new orders written for pt cont treatment and testing with gibson.
[2025-02-12 19:44] VITALS: BP 154/80
[2025-02-13 04:36] VITALS: BP 152/80
[2025-02-13 05:07] LABS: BASOPHILS ABSOLUTE AUTO 0.04 K/mm3 (0.00-0.23); BASOPHILS PERCENT AUTO 1 % (0-2); EOSINOPHILS ABSOLUTE AUTO 0.19 K/mm3 (0.00-0.68); EOSINOPHILS PERCENT AUTO 2 % (0-6); Hematocrit 38.5 % (37.0-53.0); Hemoglobin 12.9 g/dL (13.5-17.5); IMMATURE GRAN PERCENT AUTO 1 % (0-1); LYMPHOCYTES ABSOLUTE AUTO 2.07 K/mm3 (0.84-5.20); LYMPHOCYTES PERCENT AUTO 25 % (21-46); MONOCYTES ABSOLUTE AUTO 0.65 K/mm3 (0.16-1.47); MONOCYTES PERCENT AUTO 8 % (4-13); Mean Corpuscular HGB 29.7 pg (26.0-34.0); Mean Corpuscular HGB Conc 33.5 g/dL (31.5-36.5); Mean Corpuscular Volume 89 fL (80-100); Mean Platelet Volume 9.6 fL (9.1-12.4); NEUTROPHILS ABSOLUTE AUTO 5.27 K/mm3 (1.96-9.15); NEUTROPHILS PERCENT AUTO 63 % (41-73); Platelet Count 260 K/mm3 (150-400); RDW Coefficient Variation 12.8 % (11.7-14.2); RDW Standard Deviation 41.7 fL (35.1-46.3); Red Blood Cell Count 4.35 M/mm3 (4.30-5.90); White Blood Cell Count 8.32 K/mm3 (4.00-11.30)
--- NOTE | 2025-02-13 05:13 | NUR ---
SHIFT SUMMARY PT SLEPT INTERMITTENTLY DURING THE NIGHT- USING CPAP WITH 2L O2 BLEED IN. MEDICATED FOR BILAT LE PAIN PER EMAR. L KNEE XRAY RESULTS STILL PENDING. IV ANTIBIOTIC CONTINUES PER ORDER. PT NPO AFTER MIDNIGHT FOR PLANNED JOSE ANGEL TODAY. BED IN LOWEST POSITION, CALL LIGHT WITHIN REACH, SIDERAILS UP X2.
[2025-02-13 05:34] LABS: Albumin, Blood 2.5 g/dL (3.4-5.0); Albumin/Globulin Ratio 0.6 (0.8-1.8); Bilirubin, Total 0.4 mg/dL (0.1-1.0); Bun/Creatinine Ratio 23.3 (12.0-20.0); Calcium, Blood 8.4 mg/dL (8.5-10.1); Creatinine, Blood 0.73 mg/dL (0.60-1.20); Globulin, Blood 4.1 g/dL (2.2-4.0); Potassium, Blood 3.5 mmol/L (3.5-5.5); Total Protein, Blood 6.6 g/dL (6.4-8.2)
[2025-02-13 07:23] VITALS: BP 137/68
[2025-02-13] MEDS ORDERED: Lidocaine 2%-Epineph 1:100000 20 ML MDV INJ ONE (13:40)
[2025-02-13 14:59] LABS: BODY FLUID RBC 0.003 M/mm3 (0-0); RBC Count, Synovial Fluid 3000 /mm3 (0-0); WBC Count, Synovial Fluid 4399 /mm3 (0-180)
[2025-02-13 15:05] LABS: Protein, Body Fluid 3.9 g/dL
[2025-02-13 15:09] LABS: Glucose, Body Fluid 38 mg/dL
[2025-02-13 15:33] LABS: Appearance, Synovial Fluid Cloudy (Clear); Color, Synovial Fluid Pale Yellow (None-P Yel)
[2025-02-13 15:37] VITALS: BP 157/83
[2025-02-13 15:39] LABS: Lymphs, Synovial Fluid 4 % (0-15); Monocytes/Macrophages, Synovia 33 % (0-65); Neutrophils, Synovial Fluid 63 % (0-24)
--- NOTE | 2025-02-13 17:15 | NUR ---
SUMMARY- PT A/O X4, 1 SBA GAIT BELT TO BATHROOM, SLOW SHUFFELING GAIT. NPO ALL DAY AWAITING JOSE ANGEL, STILL NO WORD ON TIME. PT'S RLE REWRAPPED 1700, LEG APPEARS HEALING, LESS SWELLING AND REDNESS, CONTINUES PEALING, NO OPEN AREAS, NO HEAT. DENIED ANYTHING FOR PAIN THIS SHIFT, STATES PAIN IS MINIMAL. PT HAD KNEE ASPIRATION DONE AT BEDSIDE, TOLERATED WELL, ASPIRATE SENT TO LAB TO BE TESTED. BLOOD SUGARS HAVE BEEN STABLE, CBG'S DC'D. AT BEDSIDE, INVOLVED IN CARE. VSS. WILL REPORT TO NOC RN
[2025-02-13 19:30] VITALS: BP 152/78
[2025-02-14] VITALS (12 sets, daily range): BP systolic 123–159; BP diastolic 58–91
--- NOTE | 2025-02-14 05:58 | NUR ---
SHIFT SUMMARY: Pt is admitted for sepsis and is a full code. Is alert and able to make needs known. ADLs have been 1p. Denies pain or discomfort when asked.
[2025-02-14 06:07] LABS: BASOPHILS ABSOLUTE AUTO 0.04 K/mm3 (0.00-0.23); BASOPHILS PERCENT AUTO 0 % (0-2); EOSINOPHILS ABSOLUTE AUTO 0.26 K/mm3 (0.00-0.68); EOSINOPHILS PERCENT AUTO 3 % (0-6); Hematocrit 40.1 % (37.0-53.0); IMMATURE GRAN PERCENT AUTO 1 % (0-1); LYMPHOCYTES ABSOLUTE AUTO 1.81 K/mm3 (0.84-5.20); LYMPHOCYTES PERCENT AUTO 19 % (21-46); MONOCYTES ABSOLUTE AUTO 0.65 K/mm3 (0.16-1.47); MONOCYTES PERCENT AUTO 7 % (4-13); Mean Corpuscular HGB Conc 32.4 g/dL (31.5-36.5); Mean Corpuscular Volume 90 fL (80-100); Mean Platelet Volume 9.3 fL (9.1-12.4); NEUTROPHILS ABSOLUTE AUTO 6.55 K/mm3 (1.96-9.15); NEUTROPHILS PERCENT AUTO 70 % (41-73); Platelet Count 308 K/mm3 (150-400); RDW Coefficient Variation 12.7 % (11.7-14.2); RDW Standard Deviation 41.8 fL (35.1-46.3); Red Blood Cell Count 4.48 M/mm3 (4.30-5.90); White Blood Cell Count 9.41 K/mm3 (4.00-11.30)
[2025-02-14 06:35] LABS: Albumin, Blood 2.6 g/dL (3.4-5.0); Albumin/Globulin Ratio 0.6 (0.8-1.8); Bilirubin, Total 0.4 mg/dL (0.1-1.0); Bun/Creatinine Ratio 22.6 (12.0-20.0); Calcium, Blood 8.9 mg/dL (8.5-10.1); Creatinine, Blood 0.71 mg/dL (0.60-1.20); Globulin, Blood 4.4 g/dL (2.2-4.0); Potassium, Blood 3.6 mmol/L (3.5-5.5)
[2025-02-14] MEDS ORDERED: NS 1,000 ML IV ONE (10:28)
[2025-02-14] MEDS ORDERED: Benzocaine Oral Spray 0.5ML UD ONE (10:35)
--- NOTE | 2025-02-14 11:16 | NUR ---
ASSUMED CARE FROM ANESTHESIA. PT IS AWAKE AND VERBALIZING WELL.
[2025-02-14] MEDS ORDERED: Propofol 10mg/ml 20 ml Vial (Procedural) IV ONE (16:14)
[2025-02-14] MEDS ORDERED: Lidocaine HCl 2% 20 MG/ML 5ML SYR IV ONE (16:14)
--- NOTE | 2025-02-14 18:48 | NUR ---
SUMMARY- PT A/O X4, USES CALL LIGHT TO MAKE NEEDS KNOWN. PT HAD AN EEG TODAY AND NO VEGITATION FOUND. CELLULITIS TO RLE WITH SHIVANI WRAP, LESS SWELLING THAN LAST WEEK WHEN I HAD PT. PAIN IN LLE MILD-MOD, MEDICATED ONCE WITH OXY THIS AM WITH RELEIF. DECLINED ADDITIONAL DOSES. AT BEDSIDE MOST OF THE DAY. PLAN FOR SNF AFTER PICC/MIDLINE PLACED FOR DETENTION ABX.
[2025-02-15 04:57] LABS: BASOPHILS ABSOLUTE AUTO 0.04 K/mm3 (0.00-0.23); BASOPHILS PERCENT AUTO 1 % (0-2); EOSINOPHILS ABSOLUTE AUTO 0.23 K/mm3 (0.00-0.68); EOSINOPHILS PERCENT AUTO 3 % (0-6); Hematocrit 39.9 % (37.0-53.0); IMMATURE GRAN PERCENT AUTO 1 % (0-1); LYMPHOCYTES PERCENT AUTO 22 % (21-46); MONOCYTES ABSOLUTE AUTO 0.55 K/mm3 (0.16-1.47); MONOCYTES PERCENT AUTO 6 % (4-13); Mean Corpuscular HGB 29.1 pg (26.0-34.0); Mean Corpuscular HGB Conc 32.6 g/dL (31.5-36.5); Mean Corpuscular Volume 89 fL (80-100); Mean Platelet Volume 9.5 fL (9.1-12.4); NEUTROPHILS ABSOLUTE AUTO 5.83 K/mm3 (1.96-9.15); NEUTROPHILS PERCENT AUTO 67 % (41-73); Platelet Count 301 K/mm3 (150-400); RDW Coefficient Variation 12.9 % (11.7-14.2); RDW Standard Deviation 41.8 fL (35.1-46.3); Red Blood Cell Count 4.47 M/mm3 (4.30-5.90); White Blood Cell Count 8.65 K/mm3 (4.00-11.30)
[2025-02-15 05:19] VITALS: BP 154/80
[2025-02-15 05:32] LABS: Albumin, Blood 2.5 g/dL (3.4-5.0); Albumin/Globulin Ratio 0.6 (0.8-1.8); Bilirubin, Total 0.3 mg/dL (0.1-1.0); Bun/Creatinine Ratio 21.8 (12.0-20.0); Calcium, Blood 8.6 mg/dL (8.5-10.1); Creatinine, Blood 0.73 mg/dL (0.60-1.20); Globulin, Blood 4.2 g/dL (2.2-4.0); Potassium, Blood 3.8 mmol/L (3.5-5.5); Total Protein, Blood 6.7 g/dL (6.4-8.2)
--- NOTE | 2025-02-15 06:30 | NUR ---
PATIENT DID WELL LAST NIGHT. NO NEW ISSURES. C-PAP ON FOR A SHORT TIME. UP IN THE CHAIR FOR A SHORT TIME. TALKATIVE. RIGHT LEG REMAINS WRAPPED. CDI CONTINUE CARE.
[2025-02-15 08:21] VITALS: BP 151/88
[2025-02-15 15:12] VITALS: BP 146/72
--- NOTE | 2025-02-15 18:07 | NUR ---
NO ACUTE CHANGES THIS SHIFT. RLE CLEANSED AND REWRAPPED. 1 ASSIST TO THE CHAIR AND BACK TO BED. PER PT. INDEPENDENT AT HOME WITH FEW STEPS. PT REQUIRES ASSISTANCE WITH URINIAL. INDEPENDENCE ENCOURAGED. PT DENIED CHEST PAIN. DENIES SOB AT REST. CALLS APPROPRIATELY. ORIENTED X4.
[2025-02-15 19:16] VITALS: BP 151/93
[2025-02-16 03:32] VITALS: BP 131/69
--- NOTE | 2025-02-16 05:51 | NUR ---
SHIFT SUMMARY; PATIENT SLEPT IN LONG INTERVALS, UP TO BSC FOR BM. + BC FOR GRAM + COCCI IN CLUSTERS. DR PERKINS INFORMED, NO NEW ORDERS GIVEN TO ME, SAID HE WOULD REVIEW HIS ABX HISTORY.
[2025-02-16 08:10] VITALS: BP 172/77
[2025-02-16 14:40] VITALS: BP 142/83
[2025-02-16 19:48] VITALS: BP 131/85
--- NOTE | 2025-02-16 20:20 | NUR ---
NO ACUTE CHANGES THIS SHIFT. IV ANTIBIOTICS CONTINUED.
[2025-02-17 03:38] VITALS: BP 139/67
--- NOTE | 2025-02-17 04:40 | NUR ---
SHIFT SUMMARY; PATIENT SLEPT IN LONG INTERVALS. DECLINED PAIN MED. OWN CPAP ON. VSS. DRESSING CD& I TO RLE.
[2025-02-17 07:37] VITALS: BP 143/74
[2025-02-17 15:26] VITALS: BP 132/77
--- NOTE | 2025-02-17 19:42 | NUR ---
THIS RN REVIEWED AND AGREES WITH THE RN STUDENTS SHIFT ASSESMENT.
--- NOTE | 2025-02-17 19:43 | NUR ---
POWER GLIDE PLACED TODAY, PLAN FOR FACILITY DISCHARGED TOMORROW. RLE CLEANSED, PET JELLY APPLIED AND WRAPPED PER PT WISHES. 1 ASSIST FROM SIT TO STAND WITH FWW AND GAIT BELT, SBA TO BATHROOM AND BACK TO BED.
[2025-02-17 19:49] VITALS: BP 112/78
[2025-02-18 02:43] VITALS: BP 141/66
--- NOTE | 2025-02-18 05:23 | NUR ---
SHIFT SUMMARY; PATIENT SLEPT IN LONG INTERVALS. DID NOT REQUEST ANY PAIN MEDS. EDEMA AND REDNESS DECREASING IN RLE. DRESSING CD&I.
[2025-02-18 07:10] VITALS: BP 142/91
[2025-02-18] MEDS ORDERED: Acetaminophen650 M1 PO (09:43)
[2025-02-18] MEDS ORDERED: CEFAZOLIN SODIUM1 G1 IV (09:45)
--- NOTE | 2025-02-18 11:15 | NUR ---
DISCHARGE PT AOX4, COOPERATIVE, ABLE TO MAKE NEEDS KNOWN. PT UTILIZED 1 PERSON ASSIST GAIT BELT, FWW TO TRANSFER IN ROOM. LEFT HAND IV DC'D BY YONY MICHAELS IN PLACED FOR IV ANTIBIOTICS AT [facility]. PT TRANSPORTED VIA WHEECHIAR BY EMS TO TRANSPORT IN VEHICLE. PAPERWORK WENT WITH TRANSPORTATION. CALLED TO GIVE REPORT TO [facility], HAD TO LEAVE VOICEMAIL AND CALL BACK NUMBER.
== END 2025-02-18 11:12 | DRG 871 ==
LOC: ER 00:19 → PCU 02:57 → MEDS 02:57 → ERHOLD 02:57 → PCU 04:15 → MEDS 23:54
PROVIDERS: Emergency Medicine; Student in an Organized Health Care Education/Training Program; ADMIT Student in an Organized Health Care Education/Training Program
PROC: 3E03329 Introduction of Other Anti-infective into Peripheral Vein, Percutaneous Approach (ICD-10-PCS; 2025-02-07)
PROC: 0S9D3ZZ Drainage of Left Knee Joint, Percutaneous Approach (ICD-10-PCS; principal; 2025-02-13)
DX: A41.01 Sepsis due to Methicillin susceptible Staphylococcus aureus (principal); I21.A1 Myocardial infarction type 2; L03.115 Cellulitis of right lower limb; Z68.41 Body mass index [BMI] 40.0-44.9, adult; I50.32 Chronic diastolic (congestive) heart failure; Z79.891 Long term (current) use of opiate analgesic; E11.9 Type 2 diabetes mellitus without complications; E78.5 Hyperlipidemia, unspecified; I25.10 Atherosclerotic heart disease of native coronary artery without angina pectoris; K21.9 Gastro-esophageal reflux disease without esophagitis; M19.90 Unspecified osteoarthritis, unspecified site; N40.0 Benign prostatic hyperplasia without lower urinary tract symptoms; G47.33 Obstructive sleep apnea (adult) (pediatric); I35.0 Nonrheumatic aortic (valve) stenosis; F10.90 Alcohol use, unspecified, uncomplicated; E87.6 Hypokalemia; I11.0 Hypertensive heart disease with heart failure; Z96.661 Presence of right artificial ankle joint; M25.462 Effusion, left knee; E66.01 Morbid (severe) obesity due to excess calories; Z98.890 Other specified postprocedural states; Z90.49 Acquired absence of other specified parts of digestive tract; Z79.899 Other long term (current) drug therapy; Z79.51 Long term (current) use of inhaled steroids; Z79.84 Long term (current) use of oral hypoglycemic drugs; Z79.811 Long term (current) use of aromatase inhibitors; Z79.2 Long term (current) use of antibiotics; Z87.19 Personal history of other diseases of the digestive system; Z87.440 Personal history of urinary (tract) infections
CPT/HCPCS: 0241U; 36415; 71260; 73562-LT; 73701; 80048; 80053; 80202; 82945; 82947; 83605; 83690; 83880; 84157; 84484; 85025; 85520; 85610; 87040; 87070; 87075; 87077; 87186; 87205; 89051; 93005; 93010; 93306; 93312; 93325; 93971; 94760; 94762; 96374-59; 97110; 97112; 97116; 97162; 97530; 99285-25; A9270; J0690; J0692; J0696; J1644; J1650; J2003; J2704; J3370; J7030; J7040; J7050; J7120; Q9967

== ENCOUNTER → 2025-03-28 | Outpatient (CLI) | payer MEDICARE ==
[~2025-03-28] MED LIST changes: +ASPI81CH PO; +Acetaminophen650 M1 PO; +CEFAZOLIN SODIUM1 G1 IV; +FAMO20 PO; +JARDIANCE10 MG PO; +POTA10T PO; +Pentoxifylline400 MG PO; +Potassium Chlo20 ME1 PO
[2025-03-28 21:20] LABS: Creatinine, Urine Random 44.5 mg/dL (27.00-270.00)
[2025-03-28 21:22] LABS: Microalb/Creat Ratio UR, Rand 56.854 mg/g (0.000-30.000); Microalbumin, Random Urine 25.3 mg/L (0.000-20.000)
== END ==
LOC: LAB SHORT 18:32 → LAB 18:32
PROVIDERS: Physician Assistant
DX: E11.9 Type 2 diabetes mellitus without complications (principal)
CPT/HCPCS: 82043; 82570

== ENCOUNTER 2025-06-11 18:19 | Inpatient (IN) | payer MEDICARE ==
[~2025-06-11] VITALS: Ht 177.8 cm; Wt 135.7 kg
[2025-06-11 18:30] LABS: Calcium, Ionized (POC) 1.23 mmol/L (1.10-1.46); Chloride (POC) 101 mmol/L (98-108); Creatinine (POC) 0.9 mg/dL (0.8-1.3); Glucose (ISTAT POC) 191 mg/dL (70-99); Hematocrit (POC) 58.0 % (41.0-53.0); Hemoglobin (POC) 19.7 g/dL (13.5-17.5); Potassium (POC) 3.9 mmol/L (3.5-5.5); Sodium (POC) 140 mmol/L (135-148); Total CO2 (POC) 27 mmol/L (21-32)
[2025-06-11 18:37] LABS: pH Blood Venous 7.24 (7.34-7.37)
[2025-06-11] MEDS ORDERED: LOSARTAN POTASS25 M2 PO (18:48)
[2025-06-11 18:49] LABS: Hematocrit 54.2 % (37.0-53.0); Hemoglobin 17.1 g/dL (13.5-17.5); Mean Corpuscular HGB Conc 31.5 g/dL (31.5-36.5); Mean Corpuscular Volume 92 fL (80-100); NRBC ABSOLUTE 0.00 K/mm3 (0.00-0.02); NRBC Auto 0.0 /100 WBC (0.0-0.2); Platelet Count 280 K/mm3 (150-400); RDW Coefficient Variation 13.9 % (11.7-14.2); RDW Standard Deviation 47.5 fL (35.1-46.3)
[2025-06-11] MEDS ORDERED: OXYB5 PO (18:49)
[2025-06-11] MEDS ORDERED: FAMO20 PO (18:49)
[2025-06-11] MEDS ORDERED: OMEP20ER PO (18:51)
[2025-06-11] MEDS ORDERED: POTA10T PO (18:51)
[2025-06-11 19:03] LABS: D-Dimer, Quantitative 1.23 mg/L FEU (0.00-0.52); Prothrombin Time Results 11.5 Sec (9.7-11.5)
[2025-06-11 19:19] LABS: Magnesium, Blood 2.6 mg/dL (1.6-2.4); Thyroid Stimulating Hormone 2.27 uIU/mL (0.360-4.800)
[2025-06-11 19:19] LABS: Influenza A, PCR NEGATIVE (NEGATIVE); Influenza B, PCR NEGATIVE (NEGATIVE); Resp Syncytial Virus, PCR NEGATIVE (NEGATIVE); SARS-Cov-2 (COVID-19) PCR, MMC NEGATIVE (NEGATIVE)
[2025-06-11 19:20] LABS: BASOPHILS ABSOLUTE MAN 0.00 K/mm3 (0.00-0.23); BASOPHILS PERCENT MAN 0 % (0-2); EOSINOPHILS ABSOLUTE MAN 0.00 K/mm3 (0.00-0.68); EOSINOPHILS PERCENT MAN 0 % (0-6); LYMPHOCYTES ABSOLUTE MAN 4.59 K/mm3 (0.84-5.20); LYMPHOCYTES PERCENT MAN 22 % (21-46); MONOCYTES ABSOLUTE MAN 0.62 K/mm3 (0.16-1.47); MONOCYTES PERCENT MAN 3 % (4-13); NEUTROPHILS ABSOLUTE MAN 15.65 K/mm3 (1.96-9.15); SEG NEUTROPHILS PERCENT MAN 75 % (41-73)
[2025-06-11] MEDS ORDERED: CefTRIAXone Sodium 1,000 MG in NS 50 ML IV ONE (19:20)
[2025-06-11 19:21] LABS: Alanine Aminotransfer (ALT/SGP 20.0 U/L (12-78); Albumin, Blood 3.4 g/dL (3.4-5.0); Albumin/Globulin Ratio 0.7 (0.8-1.8); Anion Gap 10.0 mmol/L (3-11); Aspartate Aminotrans (AST/SGOT 15.0 U/L (12-37); Bilirubin, Total 1.1 mg/dL (0.1-1.0); Blood Urea Nitrogen 18.0 mg/dL (8-24); CO2, Blood 27.0 mmol/L (21-32); Calcium, Blood 9.1 mg/dL (8.5-10.1); Chloride, Blood 103.0 mmol/L (98-108); Creatinine, Blood 0.87 mg/dL (0.60-1.20); Globulin, Blood 5.1 g/dL (2.2-4.0); Glucose, Blood 201.0 mg/dL (70-99); Phosphorus, Blood 10.3 mg/dL (2.5-4.9); Potassium, Blood 3.7 mmol/L (3.5-5.5); Sodium, Blood 136.0 mmol/L (136-145); Total Protein, Blood 8.5 g/dL (6.4-8.2)
[2025-06-11 20:22] LABS: Source, Urine Clean Catch
[2025-06-11 20:28] LABS: Bilirubin, Urine Neg (Neg); Glucose Qualitative, Urine 4+ (Neg); Ketones, Urine Neg (Neg); Leukocyte Esterase, Urine Neg (Neg); Protein, Urine 4+ (Neg); Specific Gravity, Urine 1.015 (1.003-1.022); Urobilinogen, Urine NORM (Normal)
[2025-06-11 20:48] LABS: Color, Urine Yellow (P-Yellow)
[2025-06-11] MEDS ORDERED: Albuterol 2.5 MG/3 ML VIAL INH PRN (21:10)
[2025-06-11] MEDS ORDERED: Ondansetron HCl 2 MG / ML 2ML Vial IV PRN (21:10)
[2025-06-11 21:41] LABS: Uric Acid, Blood 4.3 mg/dL (3.5-7.2)
[2025-06-11 23:17] VITALS: BP 153/96
[2025-06-11] MEDS ORDERED: Heparin Sodium 5000 Units/ML 1ML MDV IV ONE (23:35)
--- NOTE | 2025-06-11 23:36 | NUR ---
ADMIT NOTE REPORT RECEIVED BY THIS RN @ APPROX 2224, FROM PHOTOGRAPHIC [employer]ESS SCREWMAKER LOVELY. PT ARRIVED @ APPROX 2238 AND WAS SLID OVER TO PCU BED BY MEDICAL STAFF PT IS ALERT, HOLDING APPROPRIATE CONVERSATION, ON 12 L O2 VIA HIGH FLOW NC, VSS.
[2025-06-11] MEDS ORDERED: Heparin Sodium,Porcine/0.5 NS 500 ML IV SCH (23:40)
[2025-06-12 01:25] LABS: pH Blood Venous 7.39 (7.34-7.37)
[2025-06-12 01:42] LABS: Magnesium, Blood 2.1 mg/dL (1.6-2.4)
[2025-06-12 01:48] LABS: Hematocrit 42.3 % (37.0-53.0); Hemoglobin 13.6 g/dL (13.5-17.5); Mean Corpuscular HGB Conc 32.2 g/dL (31.5-36.5); Mean Corpuscular Volume 91 fL (80-100); NRBC ABSOLUTE 0.00 K/mm3 (0.00-0.02); NRBC Auto 0.0 /100 WBC (0.0-0.2); Platelet Count 188 K/mm3 (150-400); RDW Coefficient Variation 13.8 % (11.7-14.2); RDW Standard Deviation 46.5 fL (35.1-46.3)
[2025-06-12 01:49] LABS: Alanine Aminotransfer (ALT/SGP 16.0 U/L (12-78); Albumin, Blood 2.5 g/dL (3.4-5.0); Albumin/Globulin Ratio 0.7 (0.8-1.8); Anion Gap 9.0 mmol/L (3-11); Aspartate Aminotrans (AST/SGOT 20.0 U/L (12-37); Bilirubin, Total 0.9 mg/dL (0.1-1.0); Blood Urea Nitrogen 17.0 mg/dL (8-24); CO2, Blood 29.0 mmol/L (21-32); Calcium, Blood 7.9 mg/dL (8.5-10.1); Chloride, Blood 105.0 mmol/L (98-108); Creatinine, Blood 0.86 mg/dL (0.60-1.20); Globulin, Blood 3.8 g/dL (2.2-4.0); Glucose, Blood 116.0 mg/dL (70-99); Phosphorus, Blood 4.2 mg/dL (2.5-4.9); Potassium, Blood 4.2 mmol/L (3.5-5.5); Sodium, Blood 139.0 mmol/L (136-145); Total Protein, Blood 6.3 g/dL (6.4-8.2)
[2025-06-12 03:58] VITALS: BP 97/54
--- NOTE | 2025-06-12 05:44 | NUR ---
SHIFT SUMMARY PT IS A&O X4, ABLE TO MAKE NEEDS KNOWN, MOVING ALL EXTREMITIES WITH PURPOSE, REPOSITIONING WITH STAFF ASSISTANCE, [place]. CONTINUOUS SPO2, SPO2 GREATER 90% ON 12L O2 VIA HIGH FLOW NC OR BIPAP 18/12/60%, LUNGS SOUND CLEAR IN UPPERS AND DIMINISHED WITH CRACKLES IN THE BASES, NO SIGNS OF RESPIRATORY DISTRESS. CONTINUOUS TELE MONITORING, SINUS HR 50-60 S, PULSES PRESENT T/O, PT DENEIS CHEST P/P T/O THIS SHIFT, MAP GREATER THAN 65. BOWEL TONES PRESENT IN ALL 4Q, PT DENIES FEELINGS OF NAUSEA, OR CONSTIPATION. PT VOIDING WITH ASSISTANCE FOR URINAL PLACEMENT. TROPONINS PEAKED AT 767. BED LOWEST POSITION, CALL LIGHT IN REACH, AWAITING TO GIVE REPORT TO ONCOMING RN.
[2025-06-12] MEDS ORDERED: Insulin Human Lispro 100 Units/ML 3ML Syringe SC SCH (07:30)
[2025-06-12 07:39] VITALS: BP 114/67
[2025-06-12] MEDS ORDERED: Dose Adjust by Pharmacy XX STA (07:44)
[2025-06-12] MEDS ORDERED: Enoxaparin 40 MG/0.4 ML SYR SC SCH (09:00)
[2025-06-12 11:38] VITALS: BP 107/74
[2025-06-12] MEDS ORDERED: FINA5 PO (12:11)
[2025-06-12] MEDS ORDERED: Florastor250 MG PO (12:12)
[2025-06-12] MEDS ORDERED: FISH OIL 1,0001 EA10 (12:13)
[2025-06-12 15:42] VITALS: BP 123/68
--- NOTE | 2025-06-12 19:31 | NUR ---
SHIFT SUMMARY: PT HAS BEEN A&Ox4, COOPERATIVE W/CARE, ABLE TO MAKE NEEDS KNOWN. PT REPORTS IMPROVED SOB COMPARED TO YESTERDAY, O2 SATS >92% ON 8 L/MIN VIA HHNC OR BIPAP. ECHO COMPLETED AT BEDSIDE THIS AM. PT DENIES CP, RATE 60s-70s, RHYTHM CHANGING BETWEEN SR AND IDIOVENTRICULAR RHYTHM. CARDIOLOGY CONSULT AT BEDSIDE THIS AM. US OF RLE TO R/OUT DVT COMPLETED THIS AM. TROPONIN HAS TRENDED DOWN. CURRENT PLAN FOR DIURESIS AND ABX THERAPY. REPORT GIVEN TO CHAKA SAMUELS TO ASSUME CARE OF PT.
[2025-06-12 19:47] VITALS: BP 148/91
[2025-06-12] MEDS ORDERED: CefTRIAXone Sodium 1,000 MG in NS 100 ML IV SCH (21:00)
[2025-06-12 23:34] VITALS: BP 130/76
[2025-06-13 03:37] VITALS: BP 131/74
[2025-06-13 03:54] LABS: BASOPHILS ABSOLUTE AUTO 0.03 K/mm3 (0.00-0.23); BASOPHILS PERCENT AUTO 0 % (0-2); EOSINOPHILS ABSOLUTE AUTO 0.20 K/mm3 (0.00-0.68); EOSINOPHILS PERCENT AUTO 3 % (0-6); Hematocrit 39.7 % (37.0-53.0); Hemoglobin 13.1 g/dL (13.5-17.5); IMMATURE GRAN ABSOLUTE AUTO 0.02 K/mm3 (0.00-0.10); IMMATURE GRAN PERCENT AUTO 0 % (0-1); LYMPHOCYTES ABSOLUTE AUTO 1.52 K/mm3 (0.84-5.20); LYMPHOCYTES PERCENT AUTO 21 % (21-46); MONOCYTES ABSOLUTE AUTO 0.65 K/mm3 (0.16-1.47); MONOCYTES PERCENT AUTO 9 % (4-13); Mean Corpuscular HGB Conc 33.0 g/dL (31.5-36.5); Mean Corpuscular Volume 92 fL (80-100); NEUTROPHILS ABSOLUTE AUTO 4.81 K/mm3 (1.96-9.15); NEUTROPHILS PERCENT AUTO 67 % (41-73); NRBC ABSOLUTE 0.00 K/mm3 (0.00-0.02); NRBC Auto 0.0 /100 WBC (0.0-0.2); Platelet Count 172 K/mm3 (150-400); RDW Coefficient Variation 13.7 % (11.7-14.2); RDW Standard Deviation 46.3 fL (35.1-46.3)
[2025-06-13 04:29] LABS: Alanine Aminotransfer (ALT/SGP 15.0 U/L (12-78); Albumin, Blood 2.4 g/dL (3.4-5.0); Albumin/Globulin Ratio 0.6 (0.8-1.8); Anion Gap 8.0 mmol/L (3-11); Aspartate Aminotrans (AST/SGOT 14.0 U/L (12-37); Bilirubin, Total 0.6 mg/dL (0.1-1.0); Blood Urea Nitrogen 24.0 mg/dL (8-24); CO2, Blood 30.0 mmol/L (21-32); Calcium, Blood 7.9 mg/dL (8.5-10.1); Chloride, Blood 105.0 mmol/L (98-108); Creatinine, Blood 0.95 mg/dL (0.60-1.20); Globulin, Blood 3.9 g/dL (2.2-4.0); Glucose, Blood 99.0 mg/dL (70-99); Potassium, Blood 3.5 mmol/L (3.5-5.5); Sodium, Blood 139.0 mmol/L (136-145); Total Protein, Blood 6.3 g/dL (6.4-8.2)
[2025-06-13 07:21] VITALS: BP 119/102
--- NOTE | 2025-06-13 07:21 | NUR ---
NOC SHIFT SUMMARY PT IS A+O X4 ABLE TO MAKE NEEDS KNOWN, COOPERATIVE WITH CARES. PT WAS HAVING ISSUES URINAL AT THE START OF SHIFT LESLIE CLINE WAS PLACED WORKING WELL FOR PT. HE WAS ABLE TO CLAUDIA BIPAP ALL NIGHT WHILE SLEEPING, NOW BACK ON 10L HIFLOW SATTING 92% ON CONTINUS PULSE OX. IV ABX GIVEN PER EMAR. PT DENIES CHEST PAIN OR PRESSURE. HE ALSO DENIES SOB BUT DOES DESAT WHILE TALKING AT TIMES. BEDREST T/O THE NIGHT. BED IN LOWEST POSTION. CALL LIGHT IN REACH. REPORT GIVEN TO DAYSHIFT.
[2025-06-13] MEDS ORDERED: Enoxaparin 40 MG/0.4 ML SYR SC SCH (09:00)
[2025-06-13 12:19] VITALS: BP 126/90
[2025-06-13 16:19] VITALS: BP 140/71
[2025-06-13] MEDS ORDERED: Potassium Chloride 10 Meq Tablet SA PO SCH (17:00)
--- NOTE | 2025-06-13 17:07 | NUR ---
SHIFT SUMMARY: PT HAS BEEN A&Ox4, COOPERATIVE W/CARE, ABLE TO MAKE NEEDS KNOWN. PT REPORTS CONTINUED IMPROVEMENT TO SOB, O2 FLOW HAS BEEN TITRATED DOWN TO 2 L/MIN, SATS >93%. PT DENIES CP, VSS. EDEMA TO BLE APPEARS IMPROVED COMPARED TO YESTERDAY, IV DIURETICS ADMINISTERED PER ORDERS. MALE PUREWICK DRAINING YELLOW COLORED URINE TO LOW CONT SUCTION. REDNESS TO RLE CONTINUES, NO OPEN SORES. PT OOB TO BSC W/ 1 ASSIST AND FWW, BM THIS SHIFT. PT SPENDS MAJORITY OF THE AFTERNOON IN RECLINER. BEDBATH COMPLETED TODAY. PT ADMISSION STATUS CHANGED TO MEDICAL, POTENTIAL DC HOME IN A COUPLE DAYS.
--- NOTE | 2025-06-13 18:20 | NUR ---
TRANSFER: PT RECEIVES NEW ROOM ASSIGNMENT IN MEDICAL DEPT. REPORT HAS BEEN GIVEN TO CHAKA DUARTE TO RECEIVE PT. PT TRANSFERED TO NEW ROOM VIA W/C W/OUT INCIDENT.
--- NOTE | 2025-06-13 19:11 | NUR ---
ASSUMPTION OF CARE 85 YEAR-OLD MALE TRANSFER FROM PCU. ADMITTING DX CHF AND CELLULITIS RIGHT LOWER LEG. CLIENT WAS INITIALLY BROUGHT INTO THE ED VIA EMS D/T SUDDEN ONSET SOB AND O2 DESATS. WAS ON 12L OF O2. HAS TITRATED DOWN TO 2L VIA NASAL CANULA. IV DIARRESIS TWICE DAILY. CLIENT IS ON A MALE PUREWICK. CLIENT'S LAST ECHO PRIOR TO ADMISSION WAS IN MARCH 2025. EF WAS 78% AT THIS TIME. ECHO DURING THIS ADMISSION SHOWS EF OF 35%-40%. CT OF [place] WAS NEGATIVE FOR PE, BUT SHOWED SOME PLURAL EFFUSIONS. US OF RLE WAS NEGATIVE FOR DVT. CLIENT HAS PREEXISTING HEART MURMOR FOR ABOUT 2 YEARS. CLIENT HAS USES CPAP FOR JAKI. HAS HEARING AIDS. PT EVAL IS PENDING. BED IS IN LOW POSITION AND CALL LIGHT IS WITHIN REACH.
[2025-06-13 19:31] VITALS: BP 129/67
[2025-06-13] MEDS ORDERED: NS 250 ML IV PRN (20:35)
[2025-06-13] MEDS ORDERED: Lactobacil 2-S.Thermo-Bifido 1 1 Cap PO SCH (21:00)
[2025-06-14 05:19] VITALS: BP 151/81
--- NOTE | 2025-06-14 05:54 | NUR ---
SHIFT SUMMARY PATIENT A/O X4- PLEASANT AND COOPERATIVE WITH CARE. VITAL SIGNS STABLE THROUGHOUT SHIFT. PUREWICK DRAINING CLEAR YELLOW URINE TO LOW SUCTION. CPAP USED THROUGHOUT THE NIGHT. OXYGEN SATURATION REMAINED ABOVE 90% ON 2LNC. NO REPORT OF SOB, CHEST PAIN OR PRESSURE. NO ACUTE CHANGES THROUGHOUT SHIFT. WILL CONTINUE TO MONITOR AND REPORT TO ONCOMING RN.
[2025-06-14 07:24] VITALS: BP 141/82
[2025-06-14 13:44] LABS: Anion Gap 6.0 mmol/L (3-11); Blood Urea Nitrogen 24.0 mg/dL (8-24); CO2, Blood 33.0 mmol/L (21-32); Calcium, Blood 8.6 mg/dL (8.5-10.1); Chloride, Blood 105.0 mmol/L (98-108); Creatinine, Blood 0.83 mg/dL (0.60-1.20); Glucose, Blood 103.0 mg/dL (70-99); Potassium, Blood 3.5 mmol/L (3.5-5.5); Sodium, Blood 140.0 mmol/L (136-145)
[2025-06-14 16:13] VITALS: BP 143/83
[2025-06-14 19:23] VITALS: BP 117/60
--- NOTE | 2025-06-15 03:03 | NUR ---
SHIFT SUMMARY NO ACUTE EVENTS DURING THIS SHIFT. PT WEARING CPAP, O2 SAT'S>93%. PT DENIES SOB. OCCASIONAL NON-PRODUCTIVE COUGH NOTED. PRN TYLENOL ADMINISTERED FOR C/O ALL OVER BODY ACHES. IV PT IS 1+PERSON ASSIST WITH GB AND FWW. WEAK LE'S. ABX INFUSED ORDERED. PUREWICK DRAINING YELLOW COLOR URINE. PT IS A/O X3-4, COOPERATIVE WITH CARE AND ABLE TO MAKE HIS NEEDS KNOWN. BED AT THE LOWEST POSITION, CALL LIGHT W/I REACH.
[2025-06-15 04:33] VITALS: BP 108/57
[2025-06-15 06:26] LABS: Anion Gap 8.0 mmol/L (3-11); Blood Urea Nitrogen 25.0 mg/dL (8-24); CO2, Blood 30.0 mmol/L (21-32); Calcium, Blood 8.6 mg/dL (8.5-10.1); Chloride, Blood 104.0 mmol/L (98-108); Creatinine, Blood 0.88 mg/dL (0.60-1.20); Glucose, Blood 94.0 mg/dL (70-99); Potassium, Blood 3.3 mmol/L (3.5-5.5); Sodium, Blood 139.0 mmol/L (136-145)
[2025-06-15 07:18] VITALS: BP 133/83
[2025-06-15] MEDS ORDERED: FERSU300 PO (13:33)
[2025-06-15] MEDS ORDERED: AMOCLA875 PO (13:37)
--- NOTE | 2025-06-15 16:16 | NUR ---
DISCHARGE NOTE PATIENT A/OX4, ABLE TO MAKE NEEDS KNOWN. PLEASANT AND COOPERATIVE WITH CARE. PATIENT WEANED FROM OXYGEN THIS AFTERNOON AFTER RESPIRATORY THERAPY COPMPLETED WALKING . PATIENT WITH NO CHRISTY OXYGEN NEEDS. POTASSIUM REPLACED ORALLY THIS MORNING. PUREWICK AND IVs REMOVED PRIOR TO DISCHARGE. NEW MEDICATIONS FAXED TO [facility] PER PATIENT REQUEST. DISCHARGE INSTRUCTIONS DISCUSSED, PATIENT AND SPOUSE WITH NO QUESTIONS AT TIME OF DISCHARGE. PATIENT ASSISTED TO FAMILY VEHICLE VIA WHEELCHAIR BY THIS RN WITH ALL BELONGINGS IN HAND. NO OTHER CONCERNS AT THIS TIME.
== END 2025-06-15 16:13 | disposition home health service (06) | DRG 871 ==
LOC: ER 18:19 → PCU 22:34 → MEDS 22:34 → PCU 22:36 → MEDS 06-13 18:15
PROVIDERS: Emergency Medicine; Internal Medicine; Nurse Practitioner Acute Care; Student in an Organized Health Care Education/Training Program; ADMIT Student in an Organized Health Care Education/Training Program
PROC: 5A09357 Assistance with Respiratory Ventilation, Less than 24 Consecutive Hours, Continuous Positive Airway Pressure (ICD-10-PCS; principal; 2025-06-11)
PROC: 3E03329 Introduction of Other Anti-infective into Peripheral Vein, Percutaneous Approach (ICD-10-PCS; principal; 2025-06-11)
DX: A41.9 Sepsis, unspecified organism (principal); I50.33 Acute on chronic diastolic (congestive) heart failure; J18.9 Pneumonia, unspecified organism; J96.01 Acute respiratory failure with hypoxia; J96.02 Acute respiratory failure with hypercapnia; I24.89 Other forms of acute ischemic heart disease; Z68.41 Body mass index [BMI] 40.0-44.9, adult; E66.01 Morbid (severe) obesity due to excess calories; I11.0 Hypertensive heart disease with heart failure; I25.10 Atherosclerotic heart disease of native coronary artery without angina pectoris; E11.9 Type 2 diabetes mellitus without complications; K21.9 Gastro-esophageal reflux disease without esophagitis; M19.90 Unspecified osteoarthritis, unspecified site; E78.5 Hyperlipidemia, unspecified; G47.33 Obstructive sleep apnea (adult) (pediatric); N40.0 Benign prostatic hyperplasia without lower urinary tract symptoms; I44.7 Left bundle-branch block, unspecified; R65.20 Severe sepsis without septic shock; I35.0 Nonrheumatic aortic (valve) stenosis; Z79.899 Other long term (current) drug therapy; Z79.84 Long term (current) use of oral hypoglycemic drugs; Z90.49 Acquired absence of other specified parts of digestive tract; Z98.890 Other specified postprocedural states; Z86.711 Personal history of pulmonary embolism
CPT/HCPCS: 36415; 71045; 71260; 80047; 80048; 80053; 81001; 82306; 82550; 82803; 82947; 83605; 83735; 83880; 83970; 84100; 84145; 84443; 84484; 84550; 85014; 85025; 85027; 85379; 85520; 85610; 85730; 87040; 87637; 93005; 93010; 93971; 94660; 94761; 94762; 96365-59; 96367; 97161; 97530; 99285-25; A9270; C8929; J0456; J0696; J1644; J1650; J1938; J7050; Q9957; Q9967